=== PATIENT | female | born 1970 | race Caucasian/White ===

== ENCOUNTER → 2016-12-15 | Outpatient (REF) | payer OTHER ==
[~2016-12-15] MED LIST: ACAM0.05 PO; ACET50TA PO; ANUS2.5C2 TOP; DOCU10ELUD PO; ELIQ5TAB PO; MOM30SS PO; PRENTAB9 PO; SERT-138 PO; SERT25TA85 PO; TRAZO50TA PO; ZOLO100T PO
== END ==
LOC: M LAB REF 09:10
PROVIDERS: ATTEND Physician Assistant
DX: Z20.828 Contact with and (suspected) exposure to other viral communicable diseases (principal)

== ENCOUNTER 2017-02-17 18:45 | Emergency (ER) | payer OTHER ==
[~2017-02-17] VITALS: Ht 160 cm; Wt 131.5 kg
[~2017-02-17 18:45] MED LIST changes: +SERT25TA PO; -SERT25TA85 PO
[2017-02-17] MEDS ORDERED: SERT50TA PO (19:00)
[2017-02-17] MEDS ORDERED: WELLTAB38 PO (19:00)
[2017-02-17] MEDS ORDERED: PANT40TA2 PO (19:00)
[2017-02-17 21:13] VITALS: BP 127/80
== END 2017-02-17 21:14 | disposition home or self-care (01) ==
LOC: M ED 20:42
DX: F10.20 Alcohol dependence, uncomplicated (principal); Z86.718 Personal history of other venous thrombosis and embolism; Z79.01 Long term (current) use of anticoagulants

== ENCOUNTER → 2017-04-01 | Outpatient (CLI) | payer MEDICAID ==
[~2017-04-01] MED LIST changes: +PANT40TA2 PO; +SERT50TA PO; +WELLTAB38 PO
== END ==
LOC: M OUTALCOH 12:54
PROVIDERS: ATTEND Psychiatry & Neurology Psychiatry
DX: F10.20 Alcohol dependence, uncomplicated (principal)

== ENCOUNTER 2017-04-12 09:24 | Outpatient (RCR) | payer MEDICAID | END 2017-04-21 | LOC: M OUTALCOH 09:24 | PROVIDERS: ATTEND Psychiatry & Neurology Psychiatry | DX: F10.20 Alcohol dependence, uncomplicated (principal) ==

== ENCOUNTER 2017-05-20 11:00 | Outpatient (RCR) | payer MEDICAID | END 2017-05-21 | LOC: M OUTALCOH 11:00 | PROVIDERS: ATTEND Psychiatry & Neurology Psychiatry | DX: F10.20 Alcohol dependence, uncomplicated (principal) ==

== ENCOUNTER → 2017-08-31 | Outpatient (CLI) | payer OTHER ==
[~2017-08-31] MED LIST changes: +ALLO100T PO; +FOLI1TAB4 PO; +INDO25CA PO; +NAPR500T3 PO; +TRAM50TA2 PO; +VENL75CA47 PO; +VITMTA PO
--- NOTE | 2017-08-31 16:18 | REP ---
RIGHT KNEE, FIVE VIEWS: HISTORY: Strain. There is no acute fracture or dislocation. The joint spaces are normal in appearance. Small osteophytes are present on the tibia and patella. IMPRESSION: Degenerative change as described above. Signed by Jose Gandara MD 08/31/2017 04:21 P
== END ==
LOC: M WUC 09:15
PROVIDERS: ATTEND Physician Assistant
DX: M25.761 Osteophyte, right knee (principal); S86.111S Strain of other muscle(s) and tendon(s) of posterior muscle group at lower leg level, right leg, sequela; X58.XXXA Exposure to other specified factors, initial encounter; Y92.89 Other specified places as the place of occurrence of the external cause; Y93.89 Activity, other specified; Y99.8 Other external cause status

== ENCOUNTER → 2017-09-07 | Outpatient (REF) | payer OTHER | LOC: M LAB REF 17:00 | PROVIDERS: ATTEND Physician Assistant Medical | DX: R30.0 Dysuria (principal) ==

== ENCOUNTER 2017-09-25 12:09 | Inpatient (IN) | payer OTHER ==
[~2017-09-25] VITALS: Ht 162.6 cm; Wt 132.0 kg
[~2017-09-25 12:09] MED LIST changes: -ALLO100T PO; -FOLI1TAB4 PO; -INDO25CA PO; -NAPR500T3 PO; -TRAM50TA2 PO; -VENL75CA47 PO; -VITMTA PO
[2017-09-25] MEDS ORDERED: ALLO100T PO (12:40)
[2017-09-25] MEDS ORDERED: NAPR500T3 PO (12:40)
[2017-09-25] MEDS ORDERED: TRAM50TA2 PO (12:40)
[2017-09-25 13:26] LABS: MEAN CORPUSCULAR HEMOGLOBIN 27.5 pg (27.0-33.0); MEAN CORPUSCULAR HGB CONC 31.7 g/dl (32.0-36.5); MEAN CORPUSCULAR VOLUME 86.5 fl (80.0-96.0); PLATELET COUNT, AUTOMATED 152 10^3/uL (150-450); RED CELL DISTRIBUTION WIDTH 15.9 % (11.5-14.5)
[2017-09-25 13:44] LABS: CONTROL LINE HCG INT CTR LINE PRESENT
[2017-09-25 13:55] LABS: ALBUMIN 3.9 GM/DL (3.2-5.2); ALBUMIN/GLOBULIN RATIO 0.98 (1.00-1.93); ALKALINE PHOSPHATASE 133 U/L (45-117); ALT/SGPT 53 U/L (12-78); ANION GAP 8 MEQ/L (8-16); AST/SGOT 28 U/L (7-37); BILIRUBIN,DIRECT 0.2 MG/DL (0.0-0.2); BILIRUBIN,TOTAL 0.3 MG/DL (0.2-1.0); BLOOD UREA NITROGEN 9 MG/DL (7-18); CALCIUM LEVEL 8.6 MG/DL (8.5-10.1); CARBON DIOXIDE LEVEL 27 MEQ/L (21-32); CHLORIDE LEVEL 108 MEQ/L (98-107); CREATININE FOR GFR 0.79 MG/DL (0.55-1.02); GLOMERULAR FILTRATION RATE > 60.0 (>58); GLUCOSE, FASTING 85 MG/DL (70-105); SODIUM LEVEL 143 MEQ/L (136-145); TOTAL PROTEIN 7.9 GM/DL (6.4-8.2)
[2017-09-25 13:57] LABS: METHADONE URINE NEGATIVE (NEGATIVE)
[2017-09-25] MEDS ORDERED: OXAZEPAM 10 MG CAP PO ONE (14:15)
[2017-09-25] MEDS ORDERED: traMADol 50 MG TAB PO ONE (17:15)
[2017-09-25] MEDS ORDERED: MOM 30ML SUSPENSION UDC PO PRN (18:15)
[2017-09-25] MEDS ORDERED: ACETAMINOPHEN TAB 650MG DOSE (2X325MG) PO PRN (18:15)
[2017-09-25] MEDS ORDERED: MAALOX 30 ML SUSP *UDC PO PRN (18:15)
[2017-09-25] MEDS ORDERED: INDO25CA PO (19:43)
[2017-09-25] MEDS ORDERED: OXAZEPAM 10 MG CAP PO PRN (21:30)
[2017-09-25] MEDS ORDERED: INDOMETHACIN 25 MG CAP PO PRN (21:30)
[2017-09-25] MEDS: THIAMINE 100 MG TAB PO SCH (22:16)
[2017-09-26 07:15] VITALS: BP 146/70
[2017-09-26] MEDS: traMADol 50 MG TAB PO PRN ×3 (07:21→21:39)
[2017-09-26] MEDS: THIAMINE 100 MG TAB PO SCH ×3 (08:55→21:14)
[2017-09-26] MEDS: MULTIVITAMINS/MINERALS THERAP 1 TAB PO SCH ×2 (08:55→10:03)
[2017-09-26] MEDS: FOLIC ACID 1 MG TAB PO SCH ×2 (08:55→10:03)
[2017-09-26] MEDS: ALLOPURINOL 100 MG TAB PO SCH (10:41)
[2017-09-26] MEDS: VENLAFAXINE **XR** 75MG CAPSULE PO SCH (13:58)
[2017-09-26 18:39] VITALS: BP 135/85
[2017-09-26] MEDS: traZODone 50 MG TAB PO PRN (21:37)
[2017-09-27 07:16] VITALS: BP 121/63
[2017-09-27 07:59] LABS: FREE T4 0.9 NG/DL (0.76-1.46)
[2017-09-27] MEDS: FOLIC ACID 1 MG TAB PO SCH (08:26)
[2017-09-27] MEDS: THIAMINE 100 MG TAB PO SCH ×2 (08:26→20:48)
[2017-09-27] MEDS: traMADol 50 MG TAB PO PRN ×3 (08:26→20:48)
[2017-09-27] MEDS: VENLAFAXINE **XR** 75MG CAPSULE PO SCH (08:26)
[2017-09-27] MEDS: ALLOPURINOL 100 MG TAB PO SCH (08:26)
[2017-09-27] MEDS: MULTIVITAMINS/MINERALS THERAP 1 TAB PO SCH (08:26)
[2017-09-27] MEDS ORDERED: INFLUENZA QUADRIVALENT PF VACCINE 0.5ML SYRINGE (90686) IM ONE (09:00)
[2017-09-27 10:48] VITALS: BP 121/63
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
--- NOTE | 2017-09-27 15:07 | HPE ---
DATE OF ADMISSION: 09/25/2017 HISTORY OF PRESENT ILLNESS: Please refer to the psychiatric history and evaluation for further details on this admission. This examination and history is intended for medical issues which may need treatment, followup or consultation on this 47-year-old female. ALLERGIES: PENICILLIN. PRIMARY CARE PROVIDER: Dr. Small. SOCIAL HISTORY: She is . She lives in [place]. She has four children. ETOH - She drinks three large 25 ounce beers a day, plus liquor at least once a month. Illicit drug use: None. IV drug use: None, denies any. PAST MEDICAL HISTORY: Depression. Anxiety. Alcohol abuse. Obesity. Low back pain. Gout. PAST SURGICAL HISTORY: Lumbar discectomy. Cholecystectomy. Gastric bypass in June of 2005. LABORATORY DATA: WBC 6.0, hemoglobin 12.6, hematocrit 39.7, platelets 152. Sodium 143, potassium 4.0, chloride 108, CO2 27, BUN and creatinine 9 and 0.79. TSH 0.167. EtOH 0.258. EK07/31/2016 showed sinus rhythm. Rate of 96. FAMILY HISTORY: Mother is alive with glaucoma. Father alive with hypertension, prostate cancer. Sibling alive with thyroid cancer and alcohol abuse. History of alcoholism in maternal grandfather and paternal grandfather. HOME MEDICATIONS: - allopurinol 100 mg by mouth daily - indomethacin 25 mg by mouth twice a day as needed for pain - tramadol 50 mg by mouth every 4 hours as needed for pain REVIEW OF SYSTEMS: Other than chronic back pain, was essentially negative. PHYSICAL EXAMINATION: 47-year-old obese female in no acute distress. Vital signs: Height 64 inches, weight 137.27 kg. Body mass index: 51.9. Blood pressure 135/85, pulse 86, respirations 16, temperature 98.2. The patient is alert and oriented times three. Pupils equal and reactive to light. Extraocular movements intact. Cornea and sclera clear. Conjunctiva normal. No facial asymmetry. Pharynx, tongue, and gums pink and moist. Tongue is midline. Neck is supple, without lymphadenopathy. No thyromegaly. No goiter. Carotids 2+ without bruit. Chest clear to auscultation, without wheeze or retraction. Heart is regular without murmur or gallop. Abdomen benign. Bowel sounds positive. /Rectal: Not done. Extremities: No cyanosis, clubbing or edema. Peripheral pulses equal and palpable bilaterally. Skin is warm and dry. Gait steady. IMPRESSION AND PLAN: 1. Psychiatric: Plan per psychiatry. 2. Chronic low back pain: Continue Tylenol as needed. 3. History of gout: Clinically stable continue allopurinol. 4. Alcohol abuse: Monitor for withdrawal.
--- NOTE | 2017-09-27 17:53 | MHIPNPDOC ---
[facility] Progress Note Progress Note DATE OF SERVICE: 09/27/17 HISTORY: Per DR. Salamanca note 09/27/17 -Patient is a 47-year-old woman with a history of alcohol abuse and depression. She called the police after her mother removed her car keys due to intoxication. She says she was having suicidal ideations without plan. Patient denies she was suicidal and says she meant "I can't live like this anymore". She says she has argument with her daughter and mother and can't handle it. Patient has chronic back pain as a stressor and has had surgery and acknowledges she has alcohol problems. This has caused her to be unable to work for several weeks. The patient drinks 2-3, 25 ounce beers nightly and has had alcohol problems for 2-3 years. She denies blackouts or having withdrawal. States Dr. Bernabe, her PCP had prescribed Vivitrol. Says Vivitrol helped her cravings, but Campral did not help. Interval history : Says she's "fine". Denies suicidal thoughts. Says her anxiety is low at the moment. Says she's taking one day at a time. Denies AH, VH , paranoia. Says she's a [employer]. Says she has an appointment for [facility] for a R knee and back MRI, date still to be determined. Until then she has time off work. Says she been off work for almost 2 weeks and feels confined to her home in [place]. Denies common or rare side effects of medications. VITAL SIGNS: See below. NEW TEST RESULTS: TSH 0.780, FT 0.9 CURRENT MEDICATIONS: See below. MENTAL STATUS EXAMINATION: Patient is a 47 year old female, who is nad, . Speech: Is spontaneous, normal rate, rhythm, volume Language skills are intact Thought processes including: linear, logical Thought content: Denies SI,HI, AVH, paranoia or other distortions of perception Abstract reasoning, and computation: Good Description of associations: Good Description of abnormal or psychotic thoughts: none Judgment: fair Insight: fair Orientation: A/O x 3 Recent and remote memory: Intact Attention span and concentration: Good Language: Appropriate Fund of knowledge: Average Mood: "good". Affect: dysthymic, constricted, appropriate DIAGNOSES: 1. Unspecified Depressive Disorder 2. Alcohol use disorder ASSESSMENT:Patient appears constricted and mildly dysthymic. She appears to be minimizing her symptoms and requires further work up on the [facility] for assessment of alcohol withdrawal and depression. She denies suicidal ideation at this time. She also denies AH, VH or other distortions of perception. MANAGEMENT PLAN: Continue Venlafaxine XR 75 mg PO daily for anxiety and depression. Continue to monitor for common or rare side effects of medications. Continue to monitor for safety. TIME SPENT: 15 minutes. Vital Signs Vital Signs Date Time Temp Pulse Resp B/P (MAP) Pulse Ox O2 Delivery O2 Flow Rate FiO2 09/27/17 16:40 16 09/27/17 10:48 71 121/63 09/27/17 07:16 99.6 09/25/17 20:07 98 Room Air Laboratory Data 24H Labs Laboratory Tests 2 09/27/17 07:12: Thyroid Stimulating Hormone (TSH) 0.780, Free Thyroxine 0.90 Current Medications Current Medications Acetaminophen (Tylenol Tab) 650 mg Q6HP PRN PO HEADACHE or DISCOMFORT; Start 09/25/17 at 18:15; Stop 10/25/17 at 18:14; Status Cancel Al Hydrox/Mg Hydrox/Simethicone (Mylanta) 30 ml Q4HP PRN PO HEARTBURN/ INDIGESTION; Start 09/25/17 at 18:15; Stop 10/25/17 at 18:14 Allopurinol (Zyloprim) 100 mg DAILY PO Last administered on 09/27/17 08:26; Start 09/26/17 at 09:00; Stop 10/26/17 at 08:59 Folic Acid (Folic Acid) 1 mg DAILY PO Last administered on 09/27/17 08:26; Start 09/26/17 at 09:00; Stop 10/26/17 at 08:59 Home Med (Med Rec Complete!) ASDIRECTED XX ; Start 09/25/17 at 19:45; Stop 09/25/17 at 19:45; Status DC Indomethacin (Indocin) 25 mg BID PRN PO PAIN; Start 09/25/17 at 21:30; Stop at 21:29 Magnesium Hydroxide (Milk Of Magnesia) 30 ml DAILYPRN PRN PO CONSTIPATION; Start 09/25/17 at 18:15; Stop 10/25/17 at 18:14 Multivitamins (Theragram-M) 1 tab DAILY PO Last administered on 09/27/17 08:26 ; Start 09/26/17 at 09:00; Stop 10/26/17 at 08:59 Oxazepam (Serax) 30 mg Q4HP PRN PO WITHDRAWAL SYMPTOMS; Start 09/25/17 at 21:30 ; Stop 10/02/17 at 21:29 Thiamine HCl (Thiamine HCl) 100 mg BID PO Last administered on 09/27/17 08:26 ; Start 09/25/17 at 21:00; Stop 09/28/17 at 09:01 Tramadol HCl (Ultram) 50 mg Q4H PRN PO PAIN Last administered on 09/27/17 15: 42; Start 09/25/17 at 21:30; Stop 10/02/17 at 21:29 Trazodone HCl (Desyrel) 50 mg QHSP PRN PO INSOMNIA Last administered on 21:37; Start 09/25/17 at 18:15; Stop 10/25/17 at 18:14 Venlafaxine HCl (Effexor Xr) 75 mg QAM PO Last administered on 09/27/17 08 :26; Start 09/26/17 at 09:00; Stop 10/26/17 at 08:59 Allergies Coded Allergies: Penicillins (Verified Allergy, Unknown, 07/30/16) Penicillins Cross Reactors (Verified Allergy, Unknown, 07/30/16) DEVIN FRITZ PGY-1 Sep 27, 2017 17:53
[2017-09-27 18:00] VITALS: BP 129/75
[2017-09-27] MEDS: traZODone 50 MG TAB PO PRN (20:48)
[2017-09-28 06:56] VITALS: BP 114/59
[2017-09-28] MEDS: THIAMINE 100 MG TAB PO SCH (08:04)
[2017-09-28] MEDS: MULTIVITAMINS/MINERALS THERAP 1 TAB PO SCH (08:06)
[2017-09-28] MEDS: FOLIC ACID 1 MG TAB PO SCH (08:06)
[2017-09-28] MEDS: traMADol 50 MG TAB PO PRN ×5 (08:06→21:31)
[2017-09-28] MEDS: ALLOPURINOL 100 MG TAB PO SCH (08:06)
[2017-09-28] MEDS: VENLAFAXINE **XR** 75MG CAPSULE PO SCH (08:07)
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
[2017-09-28 18:05] VITALS: BP 127/76
[2017-09-28] MEDS: traZODone 50 MG TAB PO PRN (21:31)
[2017-09-29 06:23] VITALS: BP 110/64
[2017-09-29] MEDS: VENLAFAXINE **XR** 75MG CAPSULE PO SCH (08:39)
[2017-09-29] MEDS: FOLIC ACID 1 MG TAB PO SCH (08:39)
[2017-09-29] MEDS: ALLOPURINOL 100 MG TAB PO SCH (08:39)
[2017-09-29] MEDS: traMADol 50 MG TAB PO PRN ×3 (08:40→21:13)
[2017-09-29] MEDS: MULTIVITAMINS/MINERALS THERAP 1 TAB PO SCH (08:40)
--- NOTE | 2017-09-29 17:19 | MHIPNPDOC ---
[facility] Progress Note Progress Note DATE OF SERVICE: 09/29/17 HISTORY: Per DR. Salamanca note 09/27/17 -Patient is a 47-year-old woman with a history of alcohol abuse and depression. She called the police after her mother removed her car keys due to intoxication. She says she was having suicidal ideations without plan. Patient denies she was suicidal and says she meant "I can't live like this anymore". She says she has argument with her daughter and mother and can't handle it. Patient has chronic back pain as a stressor and has had surgery and acknowledges she has alcohol problems. This has caused her to be unable to work for several weeks. The patient drinks 2-3, 25 ounce beers nightly and has had alcohol problems for 2-3 years. She denies blackouts or having withdrawal. States Dr. Bernabe, her PCP had prescribed Vivitrol. Says Vivitrol helped her cravings, but Campral did not help. Interval history : Says she will make call for prior authorization of MRI for right knee. Says her pain medications help. Says she still has moments where she thinks of drinking, but that she wants treatment for her addiction to alcohol. Mentins "90 meetings for 90 days" for her alcohol addiction. Has been attending some of her groups including, 1 this morning and 1 last night. Denies suicidal ideations, HI, AH, VH, paranoia. Denies common or rare side effects of medications. VITAL SIGNS: See below. NEW TEST RESULTS: see below CURRENT MEDICATIONS: See below. MENTAL STATUS EXAMINATION: Patient is a 47 year old female, who is nad, cooperative, normal eye contact. Speech: Is spontaneous, decreased rate, rhythm, volume Language skills are intact Thought processes including: linear, logical Thought content: Denies SI,HI, AVH, paranoia or other distortions of perception Abstract reasoning, and computation: not assessed Description of associations: not assessed Description of abnormal or psychotic thoughts: none Judgment: fair Insight: improving Orientation: A/O x 3 Recent and remote memory: Intact Attention span and concentration: Good Language: Appropriate Fund of knowledge: Average Mood: "good". Affect: euthymic, constricted, appropriate DIAGNOSES: 1. Unspecified Depressive Disorder 2. Alcohol use disorder ASSESSMENT: Patient is attending more groups and mood is lifted because she is hopeful to get prior authorization for the MRI of her R knee. Her insight is improving after counselling of alcohol addiction and speaking to her family members, who mention it is her last chance to continue living in their home. She says she has been driving out to a drinking spot and returning home. Discussed the dangers to both her health and others regarding this risky behavior. MANAGEMENT PLAN: Continue Venlafaxine XR 75 mg PO daily for anxiety and depression. Continue treatment plan. Continue to monitor for safety. Continue to monitor for medication side effects. Continue to monitor for alcohol withdrawal. TIME SPENT: 20 minutes. Vital Signs Vital Signs Date Time Temp Pulse Resp B/P (MAP) Pulse Ox O2 Delivery O2 Flow Rate FiO2 09/29/17 14:58 18 09/29/17 06:23 98.3 70 110/64 (79) 09/28/17 18:00 Room Air 09/25/17 20:07 98 Current Medications Current Medications Acetaminophen (Tylenol Tab) 650 mg Q6HP PRN PO HEADACHE or DISCOMFORT; Start 09/25/17 at 18:15; Stop 10/25/17 at 18:14; Status Cancel Al Hydrox/Mg Hydrox/Simethicone (Mylanta) 30 ml Q4HP PRN PO HEARTBURN/ INDIGESTION; Start 09/25/17 at 18:15; Stop 10/25/17 at 18:14 Allopurinol (Zyloprim) 100 mg DAILY PO Last administered on 09/29/17 08:39; Start 09/26/17 at 09:00; Stop 10/26/17 at 08:59 Folic Acid (Folic Acid) 1 mg DAILY PO Last administered on 09/29/17 08:39; Start 09/26/17 at 09:00; Stop 10/26/17 at 08:59 Home Med (Med Rec Complete!) ASDIRECTED XX ; Start 09/25/17 at 19:45; Stop 09/25/17 at 19:45; Status DC Indomethacin (Indocin) 25 mg BID PRN PO PAIN; Start 09/25/17 at 21:30; Stop at 21:29 Magnesium Hydroxide (Milk Of Magnesia) 30 ml DAILYPRN PRN PO CONSTIPATION; Start 09/25/17 at 18:15; Stop 10/25/17 at 18:14 Multivitamins (Theragram-M) 1 tab DAILY PO Last administered on 09/28/17 08:06 ; Start 09/26/17 at 09:00; Stop 10/26/17 at 08:59 Oxazepam (Serax) 30 mg Q4HP PRN PO WITHDRAWAL SYMPTOMS Last administered on 13:17; Start 09/25/17 at 21:30; Stop 10/02/17 at 21:29 Thiamine HCl (Thiamine HCl) 100 mg BID PO Last administered on 09/28/17 08:04 ; Start 09/25/17 at 21:00; Stop 09/28/17 at 09:01; Status DC Tramadol HCl (Ultram) 50 mg Q4H PRN PO PAIN Last administered on 09/29/17 14: 25; Start 09/25/17 at 21:30; Stop 10/02/17 at 21:29 Trazodone HCl (Desyrel) 50 mg QHSP PRN PO INSOMNIA Last administered on 21:31; Start 09/25/17 at 18:15; Stop 10/25/17 at 18:14 Venlafaxine HCl (Effexor Xr) 75 mg QAM PO Last administered on 09/29/17 08 :39; Start 09/26/17 at 09:00; Stop 10/26/17 at 08:59 Allergies Coded Allergies: Penicillins (Verified Allergy, Unknown, 07/30/16) Penicillins Cross Reactors (Verified Allergy, Unknown, 07/30/16) DEVIN FRITZ PGY-1 Sep 29, 2017 17:19
[2017-09-29] MEDS ORDERED: FOLI1TAB4 PO (17:31)
[2017-09-29] MEDS ORDERED: VITMTA PO (17:31)
[2017-09-29] MEDS ORDERED: TRAZO50TA PO (17:31)
[2017-09-29] MEDS ORDERED: VENL75CA47 PO (17:31)
[2017-09-29 18:00] VITALS: BP 123/82
[2017-09-29] MEDS: traZODone 50 MG TAB PO PRN (21:13)
[2017-09-30 06:29] VITALS: BP 132/77
[2017-09-30] MEDS: ALLOPURINOL 100 MG TAB PO SCH (08:51)
[2017-09-30] MEDS: FOLIC ACID 1 MG TAB PO SCH (08:51)
[2017-09-30] MEDS: VENLAFAXINE **XR** 75MG CAPSULE PO SCH (08:51)
[2017-09-30] MEDS: traMADol 50 MG TAB PO PRN ×2 (08:52→13:13)
[2017-09-30] MEDS: MULTIVITAMINS/MINERALS THERAP 1 TAB PO SCH (08:52)
--- NOTE | 2017-09-30 23:51 | MHDSPDOC ---
[facility] Discharge Summary Discharge Summary DATE OF ADMISSION: Sep 25, 2017 at 18:11 DATE OF DISCHARGE: Sep 30, 2017 at 17:23 DISCHARGE DIAGNOSES: 1. Unspecified Depressive Disorder 2. Alcohol Use Disorder REASON FOR ADMISSION: Per DR. Salamanca note 09/27/17 -"Patient is a 47-year-old woman with a history of alcohol abuse and depression. She called the police after her mother removed her car keys due to intoxication. She says she was having suicidal ideations without plan. Patient denies she was suicidal and says she meant "I can't live like this anymore". She says she has argument with her daughter and mother and can't handle it. Patient has chronic back pain as a stressor and has had surgery and acknowledges she has alcohol problems. This has caused her to be unable to work for several weeks. The patient drinks 2-3, 25 ounce beers nightly and has had alcohol problems for 2-3 years. She denies blackouts or having withdrawal. States Dr. Bernabe, her PCP had prescribed Vivitrol. Says Vivitrol helped her cravings, but Campral did not help". CONSULTANTS INVOLVED: none TREATMENT AND PROGRESS ON THE UNIT : The patient arrived by police escort to the [facility] Emergency Department (ED) on 09/25/17. She had an alcohol level of 0.258 and in the ED she received Oxazepam 20 mg orally once and Tramadol 100 mg orally once. She was medically cleared, CIWA protocol was continued and she was transferred to the [facility] the same day with unspecified depressive disorder. 09/25/17; in the [facility] she was started on Folic acid 1 mg orally daily for alcohol withdrawal, Multivitamins (thera M plus ) 1 tablet orally daily for vitamin deficiency, Trazodone 50 mg orally before sleep for insomnia, Allopurinol 100 mg orally daily, Indomethacin 25 mg orally twice a day as needed for pain and Tramadol HCL 50 mg orally every 4 hours as needed for pain. She was also on a CIWA monitoring ever 8 hours. 09/26/17 she was started on Venlafaxine HCL ER 75 mg orally in the morning for depression and anxiety and an influenza quadrivalent 0.5 ml intramuscular injection was ordered. Her TSH (0.78) and free T4 (0.9) were also tested. The patient received daily individual and group therapy, vital signs, sleep evaluations, violence check-list, suicidal assessments, counselling for substance abuse and evaluation for pain. A safety plan was put in place prior to discharge. HOSPITAL COURSE: see above DISCHARGE ASSESSMENT: Patient say her mood has improved and she feels more hopeful and "good" overall since she is trying to get pre-authorized for the MRI her knee. Says after speaking to her family she realizes she needs to stop her drinking; was counselled regarding alcohol cessation. She denies suicidal or homicidal ideation. She denies feeling depressed or anxious at this time. Says her medications help her and she denies common or rare side effects from her medications. She denies manic, paranoid or other distortions of perception or thought. She says she is ready to leave the inpatient unit and will attend her follow up appointments. MENTAL STATUS EXAMINATION ON DISCHARGE: Patient is a 47 year old female, who is no acute distress, cooperative, normal eye contact. Speech: spontaneous, decreased rate, rhythm, volume Language skills: intact Thought processes including: linear, logical Thought content: Denies suicidal ideation,homicidal ideation, auditory or visual hallucinations, paranoia or other distortions of perception Description of abnormal or psychotic thoughts: none Judgment: fair Insight: fair Orientation: A/O x 3 Recent and remote memory: Intact Attention span and concentration: Good Language: Appropriate Fund of knowledge: Average Mood: "good". Affect: euthymic, constricted, appropriate MEDICATIONS ON DISCHARGE: New medications - Folic acid 1 mg orally daily for alcohol withdrawal. - Multivitamins (thera M plus) 1 tablet orally daily for vitamin deficiency. - Trazodone 50 mg orally before sleep for insomnia. - Venlafaxine HCL ER 75 mg orally in the morning for depression. Continued Medications -Allopurinol 100 mg orally daily -Indomethacin 25 mg orally twice a day as needed for pain -Tramadol HCL 50 mg orally every 4 hours as needed for pain PLAN/FOLLOWUP ARRANGEMENTS: Follow Up Care Education Label * Care Coordination * Care Coordination/Case Management/Supervision [facility] Follow Up Care Education Label * Mental Health Appt 1 * [facility] * Established With This Provider No NEW PATIENT APPOINTMENT * Therapist ASTRID * Date Oct 01, 2017 * Time 09:00 * Address of Clinic or Practice [address] [place] [address] * Follow Up Care Education Label * Chemical Dependency Appt1 * Chemical Dependency [facility] * Established With This Provider No * Date Oct 04, 2017 * Time 08:00 * Address of Clinic or Practice [address] [place] [address] * Follow Up Care Education Label * Medical * Medical Follow Up [facility] * Established With This Provider No NEW PATIENT APPOINTMENT * Date Oct 11, 2017 * Time 13:30 * Phone Number [phone] * Additional information The amount of time spent in the coordination of care for this patient was approximately 60 minutes. Vital Signs/I&Os Vital Signs Date Time Temp Pulse Resp B/P (MAP) Pulse Ox O2 Delivery O2 Flow Rate FiO2 09/30/17 14:44 16 09/30/17 06:29 98.6 71 132/77 (95) 09/28/17 18:00 Room Air 09/25/17 20:07 98 Medications Scheduled Allopurinol (Allopurinol) 100 Mg Tab, 100 MG PO DAILY, (Reported) Folic Acid (Folic Acid) 1 Mg Tab, 1 MG PO DAILY for alcohol withdrawal, #7 take 1 pill per day. Multivitamins *[facility] STOCKED* (Thera M Plus *[facility] STOCKED*) 1 Tab Tab, 1 TAB PO DAILY for vitamin deficiency, #10 Take 1 tablet per day with water. Venlafaxine HCl (Venlafaxine HCl ER) 75 Mg Capcr, 75 MG PO QAM for DEPRESSION, # 7 Take one tablet in the morning every day at the same time with water. Scheduled PRN Indomethacin (Indomethacin) 25 Mg Cap, 25 MG PO BID PRN for PAIN, (Reported) Tramadol HCl (Tramadol HCl) 50 Mg Tab, 50 MG PO Q4H PRN for PAIN, (Reported) Trazodone HCl (Trazodone HCl) 50 Mg Tab, 50 MG PO QHSP PRN for INSOMNIA, #7 Take one tablet before bed as needed for insomnia. Allergies Coded Allergies: Penicillins (Verified Allergy, Unknown, 07/30/16) Penicillins Cross Reactors (Verified Allergy, Unknown, 07/30/16) GME ATTESTATION GME ATTESTATION My faculty preceptor for this patient encounter was physically present during the encounter and was fully available. All aspects of the patient interview, examination, medical decision making process, and medical care plan development were reviewed and approved by the faculty preceptor. The faculty preceptor is aware and concurs with the plan as stated in the body of this note and will attest to such by his/her cosignature. DEVIN FRITZ PGY-1 Sep 30, 2017 23:51
== END 2017-09-30 17:23 | disposition home or self-care (01) | DRG 754 ==
LOC: M ED 12:09 → M ED INP 18:11 → M PSY 20:13
PROVIDERS: ADMIT Psychiatry & Neurology Psychiatry; ATTEND Psychiatry & Neurology Psychiatry
DX: F32.9 Major depressive disorder, single episode, unspecified (principal); F10.20 Alcohol dependence, uncomplicated; Z81.8 Family history of other mental and behavioral disorders; E66.9 Obesity, unspecified; M54.5 Low back pain; M10.9 Gout, unspecified; Z98.84 Bariatric surgery status; Z81.1 Family history of alcohol abuse and dependence; Z79.899 Other long term (current) drug therapy; Z68.43 Body mass index [BMI] 50.0-59.9, adult; Z88.0 Allergy status to penicillin

== ENCOUNTER → 2017-10-11 | Outpatient (CLI) | payer OTHER ==
[~2017-10-11] MED LIST changes: +ALLO100T PO; +FOLI1TAB4 PO; +INDO25CA PO; +NAPR500T3 PO; +TRAM50TA2 PO; +VENL75CA47 PO; +VITMTA PO
--- NOTE | 2017-10-12 08:48 | REP ---
MRI lumbar spine without contrast: History: Low back pain. Remote prior history of back surgery 20 years ago. No known injury. Comparison MRI study [facility] April 05, 2014. Technique: Sagittal and axial T1 and T2-weighted scans are acquired in the usual fashion with and without fat saturation. Sequences include spin echo, turbo spin-echo, and STIR imaging sequences. MRI findings: Cortical and medullary bone signal intensity are normal. Vertebral body heights are preserved. Alignment is normal. Pedicles and posterior elements are intact. Normal caliber aorta is seen. No extra vertebral abnormality is observed. There are diffuse degenerative disc disease changes and osteoarthritic facet changes. At L1-L2, axial and sagittal images demonstrate mild diffuse disc bulging and right foraminal disc bulging. The nerve root is not compressed. There is no thecal sac compression. At L2-L3, there is moderate diffuse disc bulging. Bilateral foraminal disc bulging is seen right more so than left. The degree of disc bulge is felt to be unchanged from the 2014 prior study. There is mild left-sided neural foraminal narrowing. This is a little more prominent. There is facet hypertrophy and some ligamentum flavum hypertrophy and L2-3 mild in degree. The previously noted synovial cyst is not apparent today. Canal size is borderline. At L3-4, there is a right laminectomy defect as before. There is diffuse disc bulging. A small focal right paracentral disc protrusion is seen indenting the ventral margin of the thecal sac. This is a new finding. This is seen indenting the right ventral lateral margin of the thecal sac subtly. The nerve roots exit the neural foramina without compression. At L4-L5, today's study demonstrates a left paracentral focal disc protrusion which is very slightly larger than on the prior study indenting the ventral margin of the thecal sac to the left of midline. This is adjacent to the exiting left sided nerve root although it does not appear to compress this. No new disc herniation is seen. No central canal stenosis is noted. Mild L3-4 and L4-5 facet hypertrophy is again visible unchanged. At L5-S1, there is mild to moderate bilateral facet hypertrophy. No disc protrusion is seen. No neural foraminal narrowing or central canal stenosis is seen. Impression: Degenerative spondylosis changes as above. New small right paracentral focal disc protrusion at L3-4. Stable left paracentral disc protrusion at L4-5 very slightly larger. Borderline canal size at L2-3. Signed by Prasanna Fink MD 10/12/2017 12:38 P
== END ==
LOC: M RAD 16:58
PROVIDERS: ATTEND Orthopaedic Surgery
DX: M54.5 Low back pain (principal)

== ENCOUNTER 2018-04-07 08:54 | Emergency (ER) | payer OTHER ==
[2018-04-07] MEDS: ONDANSETRON 4MG/2ML VIAL (J2405) IV (10:04)
[2018-04-07] MEDS: NS 1,000 ML IV (10:04)
[2018-04-07] MEDS: KETOROLAC 30 MG/ML VIAL (J1885) IV (10:04)
[2018-04-07 10:10] LABS: BASO % 0.3 % (0.0-1.0); EOS # 0.1 10^3/uL (0.0-0.50); EOS % 0.6 % (0.0-3.0); HEMATOCRIT 36.9 % (36.0-47.0); HEMOGLOBIN 11.8 g/dl (12.0-15.5); IMMATURE GRANULOCYTE % 0.3 % (0-3.0); LYMPH # 1.3 10^3/uL (1.5-4.5); LYMPH % 13.1 % (24.0-44.0); MEAN CORPUSCULAR HEMOGLOBIN 26.7 pg (27.0-33.0); MEAN CORPUSCULAR VOLUME 83.5 fl (80.0-96.0); MONO # 0.8 10^3/uL (0.0-0.8); MONO % 8.1 % (0.0-5.0); NEUTROPHILS # 7.8 10^3/uL (1.8-7.7); NEUTROPHILS % 77.6 % (36.0-66.0); PLATELET COUNT, AUTOMATED 152 10^3/uL (150-450); RED BLOOD COUNT 4.42 10^6/uL (4.00-5.40); RED CELL DISTRIBUTION WIDTH 15.9 % (11.5-14.5)
[2018-04-07 10:19] LABS: KETONE, URINE AUTO RFX NEGATIVE (NEGATIVE); LEUKOCYTE ESTERASE UR AUTO RFX TRACE (NEGATIVE); MUCUS, URINE RFX LARGE (NEGATIVE); NITRITE, URINE AUTO RFX NEGATIVE (NEGATIVE); RBC, URINE AUTO RFX 0 /HPF (0-3); SPECIFIC GRAVITY UR AUTO RFX 1.028 (1.002-1.035); SQUAM EPITHELIAL CELL UR AURFX 5 /HPF (0-6); WBC, URINE AUTO RFX 3 /HPF (0-3)
[2018-04-07 10:34] LABS: ALBUMIN 3.5 GM/DL (3.2-5.2); ALBUMIN/GLOBULIN RATIO 0.88 (1.00-1.93); ALKALINE PHOSPHATASE 114 U/L (45-117); ALT/SGPT 25 U/L (12-78); ANION GAP 8 MEQ/L (8-16); AST/SGOT 30 U/L (7-37); BILIRUBIN,TOTAL 0.5 MG/DL (0.2-1.0); BLOOD UREA NITROGEN 13 MG/DL (7-18); CALCIUM LEVEL 8.5 MG/DL (8.5-10.1); CARBON DIOXIDE LEVEL 23 MEQ/L (21-32); CHLORIDE LEVEL 110 MEQ/L (98-107); CREATININE FOR GFR 0.73 MG/DL (0.55-1.30); GLOMERULAR FILTRATION RATE > 60.0 (>58); GLUCOSE, FASTING 90 MG/DL (70-100); LIPASE 121 U/L (73-393); POTASSIUM SERUM 4.4 MEQ/L (3.5-5.1); SODIUM LEVEL 141 MEQ/L (136-145); TOTAL PROTEIN 7.5 GM/DL (6.4-8.2)
[2018-04-07] MEDS: MORPHINE 4 MG/ML 1ML VIAL/SYRINGE (J2270) IV (11:03)
[2018-04-07] MEDS: METOCLOPRAMIDE INJ 10MG/2ML VIAL (J2765) IV (11:03)
== END 2018-04-07 12:16 | disposition home or self-care (01) ==
LOC: M ED 08:54
DX: R10.12 Left upper quadrant pain (principal); R10.32 Left lower quadrant pain; R10.9 Unspecified abdominal pain; R11.2 Nausea with vomiting, unspecified; Z98.84 Bariatric surgery status; Z86.718 Personal history of other venous thrombosis and embolism; K21.9 Gastro-esophageal reflux disease without esophagitis; M54.9 Dorsalgia, unspecified; F41.9 Anxiety disorder, unspecified; F32.9 Major depressive disorder, single episode, unspecified; Z88.0 Allergy status to penicillin
CPT/HCPCS: J2270

== ENCOUNTER 2018-06-19 20:02 | Emergency (ER) | payer MEDICAID, OTHER ==
[2018-06-19] MEDS ORDERED: NALOXONE INJ 2 MG/2 ML SYRINGE (J2310) As Ordered (20:11)
[2018-06-19 20:21] LABS: BEDSIDE GLUCOSE 158 MG/DL (70-105)
[2018-06-19] MEDS: NALOXONE INJ 2 MG/2 ML SYRINGE (J2310) IV (20:32)
[2018-06-19 21:05] LABS: AMPHETAMINES LEVEL URINE NEGATIVE (NEGATIVE); BARBITURATES URINE NEGATIVE (NEGATIVE); BASO % 0.7 % (0.0-1.0); BENZODIAZEPINES URINE NEGATIVE (NEGATIVE); CANNABINOIDS URINE NEGATIVE (NEGATIVE); COCAINE METABOLITE URINE NEGATIVE (NEGATIVE); EOS # 0.1 10^3/uL (0.0-0.50); EOS % 2.3 % (0.0-3.0); HEMOGLOBIN 9.9 g/dl (12.0-15.5); IMMATURE GRANULOCYTE % 0.3 % (0-3.0); LYMPH # 2.5 10^3/uL (1.5-4.5); LYMPH % 41.5 % (24.0-44.0); MEAN CORPUSCULAR HEMOGLOBIN 25.5 pg (27.0-33.0); MEAN CORPUSCULAR VOLUME 85.1 fl (80.0-96.0); METHADONE URINE NEGATIVE (NEGATIVE); MONO # 0.4 10^3/uL (0.0-0.8); MONO % 7.2 % (0.0-5.0); NEUTROPHILS # 2.9 10^3/uL (1.8-7.7); OPIATES URINE NEGATIVE (NEGATIVE); PHENCYCLIDINE URINE NEGATIVE (NEGATIVE); PLATELET COUNT, AUTOMATED 161 10^3/uL (150-450); RED BLOOD COUNT 3.88 10^6/uL (4.00-5.40); WHITE BLOOD COUNT 6.1 10^3/uL (4.0-10.0)
[2018-06-19] MEDS: MULTIVITAMIN -ADULT INJECTION 10 ML, THIAMINE INJection 100 MG, FOLIC ACID 1 MG in NS 1... IV (21:11)
[2018-06-19 21:13] LABS: ACETAMINOPHEN LEVEL < 2.0 UG/ML (10.0-30.0); ALBUMIN/GLOBULIN RATIO 0.88 (1.00-1.93); ALKALINE PHOSPHATASE 94 U/L (45-117); ALT/SGPT 20 U/L (12-78); ANION GAP 10 MEQ/L (8-16); AST/SGOT 19 U/L (7-37); BILIRUBIN,DIRECT < 0.1 MG/DL (0.0-0.2); BILIRUBIN,TOTAL 0.2 MG/DL (0.2-1.0); BLOOD UREA NITROGEN 9 MG/DL (7-18); CALCIUM LEVEL 7.5 MG/DL (8.5-10.1); CARBON DIOXIDE LEVEL 25 MEQ/L (21-32); CHLORIDE LEVEL 109 MEQ/L (98-107); CPK CREATINE PHOSPHOKINASE 249 U/L (26-192); CREATININE FOR GFR 0.82 MG/DL (0.55-1.30); ETHYL ALCOHOL (ETHANOL) 0.244 % (0.000-0.010); GLOMERULAR FILTRATION RATE > 60.0 (>58); GLUCOSE, FASTING 128 MG/DL (70-100); POTASSIUM SERUM 4.2 MEQ/L (3.5-5.1); SALICYLATE LEVEL < 1.7 MG/DL (5.0-30.0); SODIUM LEVEL 144 MEQ/L (136-145); THYROID STIMULATING HORMONE 0.632 uIU/ML (0.358-3.740); TOTAL PROTEIN 6.4 GM/DL (6.4-8.2)
== END 2018-06-20 05:53 | disposition home or self-care (01) ==
LOC: M ED 20:02
DX: F10.929 Alcohol use, unspecified with intoxication, unspecified (principal); R94.31 Abnormal electrocardiogram [ECG] [EKG]; Z88.0 Allergy status to penicillin
CPT/HCPCS: J2310

== ENCOUNTER → 2018-08-10 | Outpatient (CLI) | payer MEDICAID | LOC: M OUTALCOH 08:23 | DX: Z13.89 Encounter for screening for other disorder (principal); F10.20 Alcohol dependence, uncomplicated ==

== ENCOUNTER 2018-08-19 13:42 | Outpatient (RCR) | payer MEDICAID | END 2018-08-21 | LOC: M OUTALCOH 13:42 | DX: F10.20 Alcohol dependence, uncomplicated (principal) ==

== ENCOUNTER 2018-08-30 11:34 | Outpatient (RCR) | payer MEDICAID | END 2018-09-21 | LOC: M OUTALCOH 09-01 13:30 | DX: F10.20 Alcohol dependence, uncomplicated (principal) ==

== ENCOUNTER 2018-09-23 08:26 | Outpatient (RCR) | payer MEDICAID | END 2018-10-21 | LOC: M OUTALCOH 08:26 | DX: F10.20 Alcohol dependence, uncomplicated (principal) ==

== ENCOUNTER 2018-11-18 12:49 | Outpatient (RCR) | payer MEDICAID ==
[~2018-11-18 12:49] MED LIST changes: +BENT10CA PO; +FOLI1TAB11 PO; -FOLI1TAB4 PO; +NAPR-885 PO; -NAPR500T3 PO; -PANT40TA2 PO; +PANT40TA3 PO; +REGL10TA6 PO
== END 2018-11-21 ==
LOC: M OUTALCOH 12:49
PROVIDERS: ATTEND Psychiatry & Neurology Psychiatry
DX: F10.20 Alcohol dependence, uncomplicated (principal)

== ENCOUNTER 2018-12-09 13:00 | Outpatient (RCR) | payer MEDICAID | END 2018-12-22 | LOC: M OUTALCOH 13:00 | PROVIDERS: ATTEND Psychiatry & Neurology Psychiatry | DX: F10.20 Alcohol dependence, uncomplicated (principal) ==

== ENCOUNTER 2019-01-06 09:21 | Outpatient (RCR) | payer MEDICAID | END 2019-01-19 | LOC: M OUTALCOH 09:21 | PROVIDERS: ATTEND Psychiatry & Neurology Psychiatry | DX: F10.20 Alcohol dependence, uncomplicated (principal) ==

== ENCOUNTER 2019-02-13 13:25 | Outpatient (RCR) | payer MEDICAID | END 2019-02-19 | LOC: M OUTALCOH 13:25 | PROVIDERS: ATTEND Psychiatry & Neurology Psychiatry | DX: F10.20 Alcohol dependence, uncomplicated (principal) ==

== ENCOUNTER 2019-03-20 14:00 | Outpatient (RCR) | payer MEDICAID ==
[~2019-03-20 14:00] MED LIST changes: -ACET50TA PO; -DOCU10ELUD PO; +DOCU5LIQ PO; +MAPA500T17 PO; +SERT-141 PO; -SERT25TA PO; +SERT25TA85 PO; -SERT50TA PO
== END 2019-03-21 ==
LOC: M OUTALCOH 14:00
PROVIDERS: ATTEND Psychiatry & Neurology Psychiatry
DX: F10.20 Alcohol dependence, uncomplicated (principal)

== ENCOUNTER 2019-04-06 08:00 | Outpatient (RCR) | payer MEDICAID | END 2019-04-21 | LOC: M OUTALCOH 08:00 | PROVIDERS: ATTEND Psychiatry & Neurology Psychiatry | DX: F10.20 Alcohol dependence, uncomplicated (principal) ==

== ENCOUNTER 2019-05-09 09:13 | Outpatient (RCR) | payer MEDICAID ==
[~2019-05-09 09:13] MED LIST changes: +TRAZ1TAB10 PO; -TRAZO50TA PO
== END 2019-05-21 | disposition home or self-care (01) ==
LOC: M OUTALCOH 09:13
PROVIDERS: ATTEND Psychiatry & Neurology Psychiatry
DX: F10.20 Alcohol dependence, uncomplicated (principal)

== ENCOUNTER 2019-06-13 09:51 | Outpatient (RCR) | payer MEDICAID | END 2019-06-21 | LOC: M OUTALCOH 09:51 | PROVIDERS: ATTEND Psychiatry & Neurology Psychiatry | DX: F10.20 Alcohol dependence, uncomplicated (principal) ==

== ENCOUNTER → 2019-06-22 | Outpatient (REF) ==
--- NOTE | 2019-06-22 11:27 | REP ---
Right knee five views: Comparison is 08/31/2017. There is medial compartment osteoarthritis. This has progressed. The lateral patellofemoral compartments are unremarkable and unchanged. There is a small joint effusion. There are no calcifications or foreign bodies. No fracture. Impression: Medial compartment osteoarthritis that has progressed. Small joint effusion. Electronically Signed by Alvaro Hernandez MD 06/22/2019 11:19 A
--- NOTE | 2019-06-22 11:31 | REP ---
Lumbar spine three views: There are no comparisons. There is scoliosis convex right. There are right upper quadrant abdominal surgical clips. There is advanced degenerative disc disease at L2-3. There is mild degenerative disc disease throughout the remainder of the lumbar spine. There is no spondylolysis or spondylolisthesis. Mineralization is normal. The pedicles and sacroiliac articulations are unremarkable. 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 Impression: Scoliosis. L2-3 advanced degenerative disc disease. Pseudoarthrosis with the sacrum of the enlarged L5 right transverse process. Electronically Signed by Alvaro Hernandez MD 06/22/2019 11:21 A
== END ==
LOC: M SMT 10:41
PROVIDERS: ATTEND Internal Medicine
DX: Z00.00 Encounter for general adult medical examination without abnormal findings (principal)

== ENCOUNTER 2019-07-18 12:45 | Outpatient (RCR) | payer MEDICAID ==
[~2019-07-18 12:45] MED LIST changes: +INDO-16 PO; -INDO25CA PO
== END 2019-07-22 ==
LOC: M OUTALCOH 12:45
PROVIDERS: ATTEND Psychiatry & Neurology Psychiatry
DX: F10.20 Alcohol dependence, uncomplicated (principal)

== ENCOUNTER 2019-08-22 15:22 | Outpatient (RCR) | payer MEDICAID | END 2019-09-21 | LOC: M OUTALCOH 15:22 | PROVIDERS: ATTEND Psychiatry & Neurology Psychiatry | DX: F10.20 Alcohol dependence, uncomplicated (principal) ==

== ENCOUNTER 2019-10-05 08:07 | Outpatient (RCR) | payer MEDICAID | END 2019-10-21 | LOC: M OUTALCOH 08:07 | PROVIDERS: ATTEND Psychiatry & Neurology Psychiatry | DX: F10.20 Alcohol dependence, uncomplicated (principal) ==

== ENCOUNTER → 2020-03-11 | Outpatient (CLI) | payer MEDICAID | LOC: M OUTALCOH 07:59 | PROVIDERS: ATTEND Psychiatry & Neurology Addiction Medicine | DX: F10.20 Alcohol dependence, uncomplicated (principal) ==

== ENCOUNTER → 2020-04-08 | Outpatient (CLI) | payer MEDICAID | LOC: M OUTALCOH 08:29 | PROVIDERS: ATTEND Psychiatry & Neurology Addiction Medicine | DX: Z13.9 Encounter for screening, unspecified (principal); F10.20 Alcohol dependence, uncomplicated ==

== ENCOUNTER 2020-04-16 13:39 | Outpatient (RCR) | payer MEDICAID | END 2020-04-21 | LOC: M OUTALCOH 13:39 | PROVIDERS: ATTEND Psychiatry & Neurology Addiction Medicine | DX: F10.20 Alcohol dependence, uncomplicated (principal) ==

== ENCOUNTER → 2020-06-21 | Outpatient (RCR) | payer MEDICAID ==
[~2020-06-21] MED LIST changes: +PANT40TA29 PO; -PANT40TA3 PO
== END ==
LOC: M OUTALCOH 05-22 15:12
PROVIDERS: ATTEND Psychiatry & Neurology Addiction Medicine
DX: F10.20 Alcohol dependence, uncomplicated (principal)

== ENCOUNTER 2020-07-17 15:00 | Outpatient (RCR) | payer MEDICAID | END 2020-07-22 | LOC: M OUTALCOH 15:00 | PROVIDERS: ATTEND Psychiatry & Neurology Addiction Medicine | DX: F10.20 Alcohol dependence, uncomplicated (principal) ==

== ENCOUNTER → 2020-08-21 | Outpatient (RCR) | payer MEDICAID | LOC: M OUTALCOH 07-23 11:42 | PROVIDERS: ATTEND Psychiatry & Neurology Addiction Medicine | DX: F10.20 Alcohol dependence, uncomplicated (principal) ==

== ENCOUNTER 2020-09-20 15:00 | Outpatient (RCR) | payer MEDICAID | END 2020-09-21 | LOC: M OUTALCOH 15:00 | PROVIDERS: ATTEND Psychiatry & Neurology Addiction Medicine | DX: F10.20 Alcohol dependence, uncomplicated (principal) ==

== ENCOUNTER → 2020-10-21 | Outpatient (RCR) | payer MEDICAID | LOC: M OUTALCOH 09-23 13:13 | PROVIDERS: ATTEND Psychiatry & Neurology Addiction Medicine | DX: F10.20 Alcohol dependence, uncomplicated (principal) ==

== ENCOUNTER → 2020-11-21 | Outpatient (RCR) | payer MEDICAID | LOC: M OUTALCOH 10-25 14:32 | PROVIDERS: ATTEND Psychiatry & Neurology Addiction Medicine | DX: F10.20 Alcohol dependence, uncomplicated (principal) ==

== ENCOUNTER 2020-12-10 08:33 | Outpatient (RCR) | END 2020-12-22 | LOC: EDSTATUS 01-13 08:36 | PROVIDERS: ATTEND Family Medicine | DX: Z20.818 Contact with and (suspected) exposure to other bacterial communicable diseases (principal) ==

== ENCOUNTER 2020-12-20 14:31 | Outpatient (RCR) | payer MEDICAID | END 2020-12-22 | LOC: M OUTALCOH 14:31 | PROVIDERS: ATTEND Psychiatry & Neurology Addiction Medicine | DX: F10.20 Alcohol dependence, uncomplicated (principal) ==

== ENCOUNTER 2021-01-17 08:00 | Outpatient (RCR) | payer MEDICAID | END 2021-01-19 | LOC: M OUTALCOH 08:00 | PROVIDERS: ATTEND Psychiatry & Neurology Psychiatry | DX: F10.20 Alcohol dependence, uncomplicated (principal) ==

== ENCOUNTER 2021-02-18 10:00 | Outpatient (RCR) | payer MEDICAID | END 2021-02-19 | LOC: M OUTALCOH 10:00 | PROVIDERS: ATTEND Psychiatry & Neurology Psychiatry | DX: F10.20 Alcohol dependence, uncomplicated (principal) ==

== ENCOUNTER 2021-03-18 11:00 | Outpatient (RCR) | payer MEDICAID | END 2021-03-21 | LOC: M OUTALCOH 11:00 | PROVIDERS: ATTEND Psychiatry & Neurology Psychiatry | DX: F10.20 Alcohol dependence, uncomplicated (principal) ==

== ENCOUNTER 2021-04-15 09:00 | Outpatient (RCR) | payer MEDICAID | END 2021-04-21 | LOC: M OUTALCOH 09:00 | PROVIDERS: ATTEND Psychiatry & Neurology Psychiatry | DX: F10.20 Alcohol dependence, uncomplicated (principal) ==

== ENCOUNTER 2021-05-19 15:20 | Outpatient (RCR) | payer MEDICAID | END 2021-05-21 | LOC: M OUTALCOH 15:20 | PROVIDERS: ATTEND Psychiatry & Neurology Psychiatry | DX: F10.20 Alcohol dependence, uncomplicated (principal) ==

== ENCOUNTER 2021-06-16 14:01 | Outpatient (RCR) | payer MEDICAID | END 2021-06-21 | LOC: M OUTALCOH 14:01 | PROVIDERS: ATTEND Psychiatry & Neurology Psychiatry | DX: F10.20 Alcohol dependence, uncomplicated (principal) ==

== ENCOUNTER 2021-06-24 13:00 | Outpatient (RCR) | payer MEDICAID | END 2021-07-22 | LOC: M OUTALCOH 13:00 | PROVIDERS: ATTEND Psychiatry & Neurology Psychiatry | DX: F10.20 Alcohol dependence, uncomplicated (principal) ==

== ENCOUNTER → 2021-07-09 | Outpatient (REF) | LOC: M LABSMTC 10:13 | PROVIDERS: ATTEND Pediatrics | DX: Z11.52 Encounter for screening for COVID-19 (principal) ==

== ENCOUNTER → 2021-07-25 | Outpatient (REF) | payer MEDICAID ==
[2021-07-25 19:56] LABS: APPEARANCE, URINE MANUAL CLOUDY (CLEAR); COLOR, URINE MANUAL ORANGE (YELLOW)
[2021-07-25 19:58] LABS: BILIRUBIN, URINE MANUAL OBSCURED (NEGATIVE); BLOOD URINE MANUAL POSITIVE (NEGATIVE); GLUCOSE, URINE (UA) MANUAL NEGATIVE (NEGATIVE); KETONE, URINE MANUAL OBSCURED mg/dL (NEGATIVE); LEUKOCYTE ESTERASE, URINE MAN POSITIVE (NEGATIVE); NITRITE, URINE MANUAL OBSCURED (NEGATIVE); PROTEIN, URINE MANUAL OBSCURED mg/dL (NEGATIVE); UROBILINOGEN, URINE MANUAL OBSCURED mg/dl (NORMAL)
[2021-07-25 20:08] LABS: BACTERIA, URINE NONE SEEN; HYALINE CAST, URINE NONE SEEN /lpf (0-1); MUCUS, URINE SMALL AMOUNT (NEGATIVE); RBC, URINE TNTC /hpf (0-3); WBC, URINE TNTC /hpf (0-3)
[2021-07-25 20:09] LABS: SQUAMOUS EPITHELIAL CELL URINE SMALL AMOUNT /hpf (SMALL AMT)
== END ==
LOC: M LAB REF 16:17
PROVIDERS: ATTEND Physician Assistant Medical
DX: R30.0 Dysuria (principal)

== ENCOUNTER 2021-08-19 15:24 | Outpatient (RCR) | payer MEDICAID | END 2021-08-21 | LOC: M OUTALCOH 15:24 | PROVIDERS: ATTEND Psychiatry & Neurology Psychiatry | DX: F10.20 Alcohol dependence, uncomplicated (principal) ==

== ENCOUNTER 2021-09-17 13:00 | Outpatient (RCR) | payer MEDICAID | END 2021-09-21 | LOC: M OUTALCOH 13:00 | PROVIDERS: ATTEND Psychiatry & Neurology Psychiatry | DX: F10.20 Alcohol dependence, uncomplicated (principal) ==

== ENCOUNTER → 2021-09-26 | Outpatient (REF) | LOC: M LABSMTC 11:59 | PROVIDERS: ATTEND Pediatrics | DX: Z11.52 Encounter for screening for COVID-19 (principal) ==

== ENCOUNTER 2021-10-02 11:00 | Outpatient (RCR) | payer MEDICAID | END 2021-10-21 | LOC: M OUTALCOH 11:00 | PROVIDERS: ATTEND Psychiatry & Neurology Psychiatry | DX: F10.20 Alcohol dependence, uncomplicated (principal) ==

== ENCOUNTER → 2021-12-18 | Outpatient (CLI) | payer OTHER | LOC: M PLAIMG 13:24 | PROVIDERS: ATTEND Physician Assistant | DX: S80.01XA Contusion of right knee, initial encounter (principal); W18.30XA Fall on same level, unspecified, initial encounter; Y92.009 Unspecified place in unspecified non-institutional (private) residence as the place of occurrence of the external cause ==

== ENCOUNTER 2022-01-02 13:10 | Outpatient (RCR) | payer OTHER | END 2022-01-19 | LOC: M OUTALCOH 13:10 | PROVIDERS: ATTEND Psychiatry & Neurology Psychiatry | DX: F10.20 Alcohol dependence, uncomplicated (principal) ==

== ENCOUNTER 2022-01-18 13:21 | Emergency (ER) | payer OTHER ==
[~2022-01-18] VITALS: Ht 162.6 cm; Wt 136.4 kg
[2022-01-18] MEDS ORDERED: LORazepam 2 MG TAB PO PRN (13:30)
[2022-01-18] MEDS ORDERED: NS 1,000 ML IV ONE (13:40)
[2022-01-18 13:58] LABS: HEMATOCRIT 39.7 % (36.0-47.0); HEMOGLOBIN 13.3 g/dl (12.0-15.5); MEAN CORPUSCULAR HEMOGLOBIN 28.7 pg (27.0-33.0); MEAN CORPUSCULAR HGB CONC 33.5 g/dl (32.0-36.5); MEAN CORPUSCULAR VOLUME 85.7 fl (80.0-96.0); PLATELET COUNT, AUTOMATED 193 10^3/uL (150-450); RED BLOOD COUNT 4.63 10^6/uL (4.00-5.40)
[2022-01-18 14:38] LABS: RSV AMPLIFICATION NEGATIVE (NEGATIVE)
[2022-01-18 14:46] LABS: ACETAMINOPHEN LEVEL < 2.0 UG/ML (10.0-30.0); ALBUMIN 3.6 GM/DL (3.2-5.2); ALT/SGPT 31 U/L (12-78); BILIRUBIN,DIRECT 0.1 MG/DL (0.0-0.2); BILIRUBIN,TOTAL 0.3 MG/DL (0.2-1.0); BLOOD UREA NITROGEN 7 MG/DL (7-18); CALCIUM LEVEL 8.3 MG/DL (8.5-10.1); CARBON DIOXIDE LEVEL 24 MEQ/L (21-32); CHLORIDE LEVEL 96 MEQ/L (98-107); CREATININE FOR GFR 0.71 MG/DL (0.55-1.30); ETHYL ALCOHOL (ETHANOL) 0.374 % (0.000-0.010); GLOMERULAR FILTRATION RATE > 60.0 (>51); GLUCOSE, FASTING 92 MG/DL (70-100); POTASSIUM SERUM 4.6 MEQ/L (3.5-5.1); SALICYLATE LEVEL < 1.7 MG/DL (5.0-30.0); SODIUM LEVEL 132 MEQ/L (136-145); THYROID STIMULATING HORMONE 0.362 uIU/ML (0.358-3.740); TOTAL PROTEIN 7.2 GM/DL (6.4-8.2)
[2022-01-18 15:31] LABS: AMPHETAMINES LEVEL URINE NEGATIVE (NEGATIVE); BARBITURATES URINE NEGATIVE (NEGATIVE); BENZODIAZEPINES URINE NEGATIVE (NEGATIVE); CANNABINOIDS URINE NEGATIVE (NEGATIVE); COCAINE METABOLITE URINE NEGATIVE (NEGATIVE); METHADONE URINE NEGATIVE (NEGATIVE); OPIATES URINE NEGATIVE (NEGATIVE); PHENCYCLIDINE URINE NEGATIVE (NEGATIVE)
[2022-01-18 19:37] VITALS: BP 163/81
[2022-01-18] MEDS ORDERED: THIAMINE 100 MG TAB PO SCH (21:00)
[2022-01-19] MEDS ORDERED: MULTIVITAMINS/MINERALS THERAP 1 TAB PO SCH (09:00)
[2022-01-19] MEDS ORDERED: FOLIC ACID 1 MG TAB PO SCH (09:00)
== END 2022-01-18 23:17 | disposition home or self-care (01) ==
LOC: EDBD 13:21 → M ED 13:21
DX: F10.120 Alcohol abuse with intoxication, uncomplicated (principal); F32.A Depression, unspecified; Z88.0 Allergy status to penicillin

== ENCOUNTER 2022-02-18 09:31 | Outpatient (RCR) | payer MEDICAID | END 2022-02-19 | LOC: M OUTALCOH 09:31 | PROVIDERS: ATTEND Psychiatry & Neurology Psychiatry | DX: F10.20 Alcohol dependence, uncomplicated (principal) ==

== ENCOUNTER → 2022-05-21 | Outpatient (CLI) | payer MEDICAID | LOC: M OUTALCOH 09:01 | PROVIDERS: ATTEND Psychiatry & Neurology Psychiatry | DX: F10.10 Alcohol abuse, uncomplicated (principal) ==

== ENCOUNTER 2022-06-11 15:32 | Outpatient (RCR) | payer MEDICAID ==
[2022-06-17] MEDS ORDERED: NALT50TA4 PO (08:24)
[2022-06-17] MEDS ORDERED: ARIP1TAB6 PO (08:24)
[2022-06-17] MEDS ORDERED: PANT40TA29 PO (08:24)
[2022-06-17] MEDS ORDERED: CELE1CAP9 PO (08:24)
[2022-06-17] MEDS ORDERED: DISU1TAB6 (08:24)
[2022-06-17] MEDS ORDERED: BUPR300T92 PO (08:24)
[2022-06-17] MEDS ORDERED: ZOLO100T PO (08:24)
[2022-06-17] MEDS ORDERED: GABA-1171 PO (08:24)
[2022-06-17] MEDS ORDERED: GABA800T4 PO (08:24)
== END 2022-06-21 ==
LOC: M OUTALCOH 15:32
PROVIDERS: ATTEND Psychiatry & Neurology Psychiatry
DX: F10.10 Alcohol abuse, uncomplicated (principal)

== ENCOUNTER 2022-06-16 22:42 | Inpatient (IN) | payer MEDICAID ==
[~2022-06-16] VITALS: Ht 162.6 cm; Wt 136.4 kg
[2022-06-16 23:16] LABS: HEMATOCRIT 40.5 % (36.0-47.0); HEMOGLOBIN 13.3 g/dl (12.0-15.5); MEAN CORPUSCULAR HEMOGLOBIN 28.7 pg (27.0-33.0); MEAN CORPUSCULAR HGB CONC 32.8 g/dl (32.0-36.5); MEAN CORPUSCULAR VOLUME 87.5 fl (80.0-96.0); PLATELET COUNT, AUTOMATED 212 10^3/uL (150-450); RED BLOOD COUNT 4.63 10^6/uL (4.00-5.40); WHITE BLOOD COUNT 6.4 10^3/uL (4.0-10.0)
[2022-06-16 23:51] LABS: ACETAMINOPHEN LEVEL < 2.0 UG/ML (10.0-30.0); ALBUMIN 3.7 GM/DL (3.2-5.2); ALT/SGPT 41 U/L (12-78); AMPHETAMINES LEVEL URINE NEGATIVE (NEGATIVE); BARBITURATES URINE NEGATIVE (NEGATIVE); BENZODIAZEPINES URINE NEGATIVE (NEGATIVE); BILIRUBIN,DIRECT < 0.1 MG/DL (0.0-0.2); BILIRUBIN,TOTAL 0.3 MG/DL (0.2-1.0); BLOOD UREA NITROGEN 12 MG/DL (7-18); CALCIUM LEVEL 8.5 MG/DL (8.5-10.1); CANNABINOIDS URINE NEGATIVE (NEGATIVE); CARBON DIOXIDE LEVEL 20 MEQ/L (21-32); CHLORIDE LEVEL 112 MEQ/L (98-107); COCAINE METABOLITE URINE NEGATIVE (NEGATIVE); CREATININE FOR GFR 0.73 MG/DL (0.55-1.30); GLOMERULAR FILTRATION RATE > 60.0 (>51); GLUCOSE, FASTING 116 MG/DL (70-100); METHADONE URINE NEGATIVE (NEGATIVE); OPIATES URINE NEGATIVE (NEGATIVE); PHENCYCLIDINE URINE NEGATIVE (NEGATIVE); POTASSIUM SERUM 4.4 MEQ/L (3.5-5.1); SALICYLATE LEVEL < 1.7 MG/DL (5.0-30.0); SODIUM LEVEL 143 MEQ/L (136-145); THYROID STIMULATING HORMONE 0.682 uIU/ML (0.358-3.740); TOTAL PROTEIN 7.6 GM/DL (6.4-8.2)
[2022-06-16 23:59] LABS: RSV AMPLIFICATION NEGATIVE (NEGATIVE)
[2022-06-17] MEDS ORDERED: LORazepam 2 MG TAB PO PRN ×2 (02:15→13:20)
[2022-06-17] MEDS: THIAMINE 100 MG TAB PO SCH ×2 (08:18→21:00)
[2022-06-17] MEDS ORDERED: BUPR300T92 PO (08:24)
[2022-06-17] MEDS ORDERED: GABA-1171 PO (08:24)
[2022-06-17] MEDS ORDERED: DISU1TAB6 (08:24)
[2022-06-17] MEDS ORDERED: ZOLO100T PO (08:24)
[2022-06-17] MEDS ORDERED: NALT50TA4 PO (08:24)
[2022-06-17] MEDS ORDERED: GABA800T4 PO (08:24)
[2022-06-17] MEDS ORDERED: CELE1CAP9 PO (08:24)
[2022-06-17] MEDS ORDERED: ARIP1TAB6 PO (08:24)
[2022-06-17] MEDS ORDERED: PANT40TA29 PO (08:24)
[2022-06-17] MEDS ORDERED: MULTIVITAMINS/MINERALS THERAP 1 TAB PO SCH (09:00)
[2022-06-17] MEDS ORDERED: THIAMINE 100 MG TAB PO SCH ×2 (09:00→21:00)
[2022-06-17] MEDS ORDERED: FOLIC ACID 1MG TAB PO SCH (09:00)
[2022-06-17] MEDS ORDERED: NALTREXONE 50 MG TAB PO SCH (12:40)
[2022-06-17] MEDS ORDERED: PANTOPRAZOLE 40MG TAB (PROTONIX) PO SCH (12:40)
[2022-06-17] MEDS ORDERED: buPROPion **XL** TABLET 150MG (WELLBUTRIN XL) PO SCH (12:40)
[2022-06-17] MEDS: GABAPENTIN 300 MG CAP PO SCH ×3 (12:53→21:52)
[2022-06-17] MEDS ORDERED: CelecoXIB (CeleBREX) 100 MG CAP PO SCH (12:55)
[2022-06-17] MEDS ORDERED: traZODone 50 MG TAB PO PRN (13:20)
[2022-06-17] MEDS ORDERED: MAALOX 30 ML SUSP *UDC PO PRN (13:20)
[2022-06-17] MEDS ORDERED: MOM 30ML SUSPENSION UDC PO PRN (13:20)
[2022-06-17] MEDS ORDERED: diphenhydrAMINE 25MG CAP PO PRN (13:20)
[2022-06-17] MEDS ORDERED: IBUPROFEN 400MG TAB PO PRN (13:20)
[2022-06-17] MEDS ORDERED: HOME MED LIST COMPLETE! XX SCH (15:15)
[2022-06-17 23:15] VITALS: BP 142/86
[2022-06-18] MEDS ORDERED: MULTIVITAMINS/MINERALS THERAP 1 TAB PO SCH (09:00)
[2022-06-18] MEDS ORDERED: SERTRALINE 100 MG TAB PO SCH (09:00)
[2022-06-18] MEDS ORDERED: NICOTINE 21MG/24HR 1 EA TRANSDERMAL TD SCH (09:00)
[2022-06-18] MEDS ORDERED: FOLIC ACID 1MG TAB PO SCH (09:00)
== END 2022-06-17 23:22 | DRG 754 ==
LOC: M ED 22:42 → M ED INP 06-17 13:17
PROVIDERS: ADMIT Psychiatry & Neurology Psychiatry; ATTEND Psychiatry & Neurology Psychiatry
DX: F32.A Depression, unspecified (principal); R45.851 Suicidal ideations; Z88.0 Allergy status to penicillin

== ENCOUNTER → 2022-07-22 | Outpatient (CLI) | payer MEDICAID ==
[~2022-07-22] MED LIST changes: +ARIP1TAB6 PO; +BUPR300T92 PO; +CELE1CAP9 PO; +DISU1TAB6; +GABA-1171 PO; +GABA800T4 PO; +NALT50TA4 PO
== END ==
LOC: M LAB 17:38
PROVIDERS: ATTEND Psychiatry & Neurology Psychiatry
DX: F10.20 Alcohol dependence, uncomplicated (principal)

== ENCOUNTER → 2022-07-22 | Outpatient (RCR) | payer MEDICAID | LOC: M OUTALCOH 16:00 | PROVIDERS: ATTEND Psychiatry & Neurology Psychiatry | DX: F10.20 Alcohol dependence, uncomplicated (principal) ==

== ENCOUNTER → 2022-08-21 | Outpatient (RCR) | payer MEDICAID | LOC: M OUTALCOH 07-24 15:30 | PROVIDERS: ATTEND Psychiatry & Neurology Psychiatry | DX: F10.20 Alcohol dependence, uncomplicated (principal) ==

== ENCOUNTER 2022-08-28 22:12 | Inpatient (IN) | payer MEDICAID ==
[~2022-08-28] VITALS: Ht 162.6 cm; Wt 138.3 kg
[2022-08-28] MEDS ORDERED: CHARCOAL ACTIVATED LIQUID 25 GM/120 ML BTL PO ONE (22:20)
[2022-08-28 22:49] LABS: BASO % 0.3 % (0.0-1.0); EOS # 0.1 10^3/uL (0.0-0.5); EOS % 0.9 % (0.0-3.0); HEMATOCRIT 38.4 % (36.0-47.0); HEMOGLOBIN 12.3 g/dl (12.0-15.5); LYMPH # 1.8 10^3/uL (1.5-5.0); LYMPH % 23.4 % (24.0-44.0); MEAN CORPUSCULAR VOLUME 87.5 fl (80.0-96.0); MONO # 0.4 10^3/uL (0.0-0.8); MONO % 5.2 % (2.0-8.0); NEUTROPHILS # 5.3 10^3/uL (1.5-8.5); NEUTROPHILS % 69.8 % (36.0-66.0); PLATELET COUNT, AUTOMATED 214 10^3/uL (150-450); RED BLOOD COUNT 4.39 10^6/uL (4.00-5.40); WHITE BLOOD COUNT 7.6 10^3/uL (4.0-10.0)
[2022-08-28 23:24] LABS: RSV AMPLIFICATION NEGATIVE (NEGATIVE)
[2022-08-28 23:40] LABS: ACETAMINOPHEN LEVEL < 2.0 UG/ML (10.0-30.0); ALBUMIN 3.4 GM/DL (3.2-5.2); ALT/SGPT 37 U/L (12-78); BILIRUBIN,DIRECT < 0.1 MG/DL (0.0-0.2); BILIRUBIN,TOTAL 0.1 MG/DL (0.2-1.0); BLOOD UREA NITROGEN 14 MG/DL (7-18); CALCIUM LEVEL 8.5 MG/DL (8.5-10.1); CARBON DIOXIDE LEVEL 22 MEQ/L (21-32); CHLORIDE LEVEL 103 MEQ/L (98-107); ETHYL ALCOHOL (ETHANOL) 0.148 % (0.000-0.010); GLUCOSE, FASTING 165 MG/DL (70-100); SALICYLATE LEVEL < 1.7 MG/DL (5.0-30.0); SODIUM LEVEL 134 MEQ/L (136-145); THYROID STIMULATING HORMONE 0.573 uIU/ML (0.358-3.740); TOTAL PROTEIN 6.9 GM/DL (6.4-8.2)
[2022-08-29 00:05] LABS: HCG, SERUM QUALITATIVE NEGATIVE (NEGATIVE)
[2022-08-29 01:49] LABS: AMPHETAMINES LEVEL URINE NEGATIVE (NEGATIVE); BARBITURATES URINE NEGATIVE (NEGATIVE); BENZODIAZEPINES URINE NEGATIVE (NEGATIVE); CANNABINOIDS URINE NEGATIVE (NEGATIVE); COCAINE METABOLITE URINE NEGATIVE (NEGATIVE); METHADONE URINE NEGATIVE (NEGATIVE); OPIATES URINE NEGATIVE (NEGATIVE); PHENCYCLIDINE URINE NEGATIVE (NEGATIVE)
[2022-08-29] MEDS ORDERED: ACETAMINOPHEN TAB 650MG DOSE (2X325MG) PO ONE (13:35)
[2022-08-29] MEDS ORDERED: TRAZ-252 PO (19:05)
[2022-08-29] MEDS ORDERED: DISU1TAB6 PO (20:37)
[2022-08-29] MEDS ORDERED: HOME MED LIST COMPLETE! XX SCH (20:40)
[2022-08-30] MEDS: PANTOPRAZOLE 40MG TAB (PROTONIX) PO SCH (10:26)
[2022-08-30] MEDS: CelecoXIB (CeleBREX) 100 MG CAP PO SCH (10:26)
[2022-08-30] MEDS: buPROPion **XL** TABLET 150MG (WELLBUTRIN XL) PO SCH (10:27)
[2022-08-30] MEDS: SERTRALINE HCL 50 MG TAB PO SCH (10:28)
[2022-08-31] MEDS ORDERED: GABAPENTIN 300 MG CAP PO SCH (09:00)
[2022-08-31] MEDS: PANTOPRAZOLE 40MG TAB (PROTONIX) PO SCH (09:27)
[2022-08-31] MEDS: buPROPion **XL** TABLET 150MG (WELLBUTRIN XL) PO SCH (09:27)
[2022-08-31] MEDS: SERTRALINE HCL 50 MG TAB PO SCH (09:27)
[2022-08-31 12:13] LABS: RSV AMPLIFICATION NEGATIVE (NEGATIVE)
[2022-08-31] MEDS: CelecoXIB (CeleBREX) 100 MG CAP PO SCH ×4 (12:29→17:00)
[2022-08-31] MEDS ORDERED: traZODone 50 MG TAB PO PRN (14:15)
[2022-08-31] MEDS ORDERED: MOM 30ML SUSPENSION UDC PO PRN (14:15)
[2022-08-31] MEDS ORDERED: MAALOX 30 ML SUSP *UDC PO PRN (14:15)
[2022-08-31] MEDS ORDERED: LORazepam 2 MG TAB PO PRN (14:15)
[2022-08-31] MEDS: NALTREXONE 50 MG TAB PO SCH (14:56)
[2022-08-31] MEDS: THIAMINE 100 MG TAB PO SCH ×2 (14:56→22:00)
[2022-08-31] MEDS: MULTIVITAMINS/MINERALS THERAP 1 TAB PO SCH (14:56)
[2022-08-31] MEDS: FOLIC ACID 1MG TAB PO SCH (14:56)
[2022-08-31] MEDS ORDERED: GABAPENTIN 400MG CAP PO SCH (16:00)
[2022-08-31] MEDS ORDERED: GABAPENTIN 100 MG CAP PO SCH (16:00)
[2022-08-31] MEDS: GABAPENTIN 300 MG CAP PO SCH ×2 (17:00→22:00)
[2022-08-31] MEDS: NICOTINE 21MG/24HR 1 EA TRANSDERMAL TD SCH (17:12)
[2022-08-31 20:52] VITALS: BP 116/83
[2022-08-31 22:13] VITALS: BP 116/83
[2022-09-01 05:15] VITALS: BP 133/70
[2022-09-01] MEDS ORDERED: buPROPion **XL** TABLET 150MG (WELLBUTRIN XL) PO SCH (09:00)
[2022-09-01] MEDS: NICOTINE 21MG/24HR 1 EA TRANSDERMAL TD SCH (09:00)
[2022-09-01] MEDS: FOLIC ACID 1MG TAB PO SCH (09:25)
[2022-09-01] MEDS: GABAPENTIN 300 MG CAP PO SCH ×3 (09:25→20:58)
[2022-09-01] MEDS: NALTREXONE 50 MG TAB PO SCH (09:25)
[2022-09-01] MEDS: THIAMINE 100 MG TAB PO SCH ×2 (09:25→20:57)
[2022-09-01] MEDS: MULTIVITAMINS/MINERALS THERAP 1 TAB PO SCH (09:26)
[2022-09-01] MEDS: IBUPROFEN 400MG TAB PO PRN (09:26)
[2022-09-01] MEDS: PANTOPRAZOLE 40MG TAB (PROTONIX) PO SCH (09:26)
[2022-09-01] MEDS: SERTRALINE 100 MG TAB PO SCH (11:45)
[2022-09-01] MEDS: ANALGESIC BALM CRM 3OZ TOP SCH ×3 (12:50→20:57)
[2022-09-01 14:28] VITALS: BP 116/23
[2022-09-01] MEDS: CelecoXIB (CeleBREX) 100 MG CAP PO SCH (15:34)
[2022-09-01 16:02] VITALS: BP 112/60
[2022-09-01] MEDS: MIRTAZAPINE 7.5MG PER 1/2 TABLET PO SCH (20:58)
[2022-09-01 22:37] VITALS: BP 129/62
[2022-09-02 06:25] VITALS: BP 139/93
[2022-09-02 06:27] VITALS: BP 139/93
[2022-09-02 07:36] LABS: HEMOGLOBIN A1c 5.6 %
[2022-09-02 07:43] LABS: CHOLESTEROL RISK RATIO 1.927 (<5)
[2022-09-02] MEDS: NICOTINE 21MG/24HR 1 EA TRANSDERMAL TD SCH (08:04)
[2022-09-02] MEDS: CelecoXIB (CeleBREX) 100 MG CAP PO SCH (08:06)
[2022-09-02] MEDS: buPROPion **XL** TABLET 150MG (WELLBUTRIN XL) PO SCH (08:06)
[2022-09-02] MEDS: FOLIC ACID 1MG TAB PO SCH (08:06)
[2022-09-02] MEDS: GABAPENTIN 300 MG CAP PO SCH ×3 (08:07→21:29)
[2022-09-02] MEDS: THIAMINE 100 MG TAB PO SCH ×2 (08:07→21:29)
[2022-09-02] MEDS: SERTRALINE 100 MG TAB PO SCH (08:07)
[2022-09-02] MEDS: PANTOPRAZOLE 40MG TAB (PROTONIX) PO SCH (08:07)
[2022-09-02] MEDS: NALTREXONE 50 MG TAB PO SCH (08:07)
[2022-09-02] MEDS: MULTIVITAMINS/MINERALS THERAP 1 TAB PO SCH (08:07)
[2022-09-02] MEDS: ANALGESIC BALM CRM 3OZ TOP SCH ×4 (08:08→21:29)
[2022-09-02] MEDS: IBUPROFEN 400MG TAB PO PRN ×2 (08:11→15:32)
[2022-09-02 16:22] VITALS: BP 107/62
[2022-09-02] MEDS: MIRTAZAPINE 7.5MG PER 1/2 TABLET PO SCH (21:29)
[2022-09-03 06:14] VITALS: BP 130/79
[2022-09-03] MEDS: NALTREXONE 50 MG TAB PO SCH (09:31)
[2022-09-03] MEDS: buPROPion **XL** TABLET 150MG (WELLBUTRIN XL) PO SCH (09:31)
[2022-09-03] MEDS: FOLIC ACID 1MG TAB PO SCH (09:31)
[2022-09-03] MEDS: CelecoXIB (CeleBREX) 100 MG CAP PO SCH (09:31)
[2022-09-03] MEDS: PANTOPRAZOLE 40MG TAB (PROTONIX) PO SCH (09:31)
[2022-09-03] MEDS: GABAPENTIN 300 MG CAP PO SCH ×3 (09:31→21:11)
[2022-09-03] MEDS: SERTRALINE 100 MG TAB PO SCH (09:31)
[2022-09-03] MEDS: MULTIVITAMINS/MINERALS THERAP 1 TAB PO SCH (09:31)
[2022-09-03] MEDS: ANALGESIC BALM CRM 3OZ TOP SCH ×4 (09:33→21:11)
[2022-09-03 18:36] VITALS: BP 107/64
[2022-09-03] MEDS: MIRTAZAPINE 7.5MG PER 1/2 TABLET PO SCH (21:11)
[2022-09-03] MEDS: IBUPROFEN 400MG TAB PO PRN (21:12)
[2022-09-04 06:01] VITALS: BP 140/74
[2022-09-04] MEDS: ANALGESIC BALM CRM 3OZ TOP SCH ×4 (08:33→21:21)
[2022-09-04] MEDS: CelecoXIB (CeleBREX) 100 MG CAP PO SCH (08:33)
[2022-09-04] MEDS: buPROPion **XL** TABLET 150MG (WELLBUTRIN XL) PO SCH (08:33)
[2022-09-04] MEDS: SERTRALINE 100 MG TAB PO SCH (08:33)
[2022-09-04] MEDS: GABAPENTIN 300 MG CAP PO SCH ×3 (08:33→21:21)
[2022-09-04] MEDS: PANTOPRAZOLE 40MG TAB (PROTONIX) PO SCH (08:33)
[2022-09-04] MEDS: NALTREXONE 50 MG TAB PO SCH (08:33)
[2022-09-04] MEDS: IBUPROFEN 400MG TAB PO PRN (08:34)
[2022-09-04 16:01] VITALS: BP 143/77
[2022-09-04 16:17] VITALS: BP 119/66
[2022-09-04] MEDS: MIRTAZAPINE 7.5MG PER 1/2 TABLET PO SCH (21:21)
[2022-09-05 06:43] VITALS: BP 124/86
[2022-09-05] MEDS: buPROPion **XL** TABLET 150MG (WELLBUTRIN XL) PO SCH (08:40)
[2022-09-05] MEDS: CelecoXIB (CeleBREX) 100 MG CAP PO SCH (08:40)
[2022-09-05] MEDS: GABAPENTIN 300 MG CAP PO SCH ×3 (08:41→21:02)
[2022-09-05] MEDS: ANALGESIC BALM CRM 3OZ TOP SCH ×4 (08:41→21:02)
[2022-09-05] MEDS: NALTREXONE 50 MG TAB PO SCH (08:41)
[2022-09-05] MEDS: PANTOPRAZOLE 40MG TAB (PROTONIX) PO SCH (08:41)
[2022-09-05] MEDS: SERTRALINE 100 MG TAB PO SCH (08:41)
[2022-09-05 16:27] VITALS: BP 100/57
[2022-09-05] MEDS: MIRTAZAPINE 7.5MG PER 1/2 TABLET PO SCH (21:02)
[2022-09-06 06:29] VITALS: BP 135/74
[2022-09-06] MEDS: NALTREXONE 50 MG TAB PO SCH (08:10)
[2022-09-06] MEDS: SERTRALINE 100 MG TAB PO SCH (08:10)
[2022-09-06] MEDS: PANTOPRAZOLE 40MG TAB (PROTONIX) PO SCH (08:10)
[2022-09-06] MEDS: buPROPion **XL** TABLET 150MG (WELLBUTRIN XL) PO SCH (08:10)
[2022-09-06] MEDS: ANALGESIC BALM CRM 3OZ TOP SCH ×4 (08:11→20:51)
[2022-09-06] MEDS: CelecoXIB (CeleBREX) 100 MG CAP PO SCH (08:11)
[2022-09-06] MEDS: GABAPENTIN 300 MG CAP PO SCH ×3 (08:11→20:51)
[2022-09-06 16:22] VITALS: BP 119/57
[2022-09-06] MEDS: MIRTAZAPINE 7.5MG PER 1/2 TABLET PO SCH (20:50)
[2022-09-07 06:19] VITALS: BP 142/79
[2022-09-07] MEDS: ANALGESIC BALM CRM 3OZ TOP SCH (09:11)
[2022-09-07] MEDS: buPROPion **XL** TABLET 150MG (WELLBUTRIN XL) PO SCH (09:11)
[2022-09-07] MEDS: CelecoXIB (CeleBREX) 100 MG CAP PO SCH (09:11)
[2022-09-07] MEDS: NALTREXONE 50 MG TAB PO SCH (09:11)
[2022-09-07] MEDS: PANTOPRAZOLE 40MG TAB (PROTONIX) PO SCH (09:11)
[2022-09-07] MEDS: GABAPENTIN 300 MG CAP PO SCH (09:11)
[2022-09-07] MEDS: SERTRALINE 100 MG TAB PO SCH (09:11)
[2022-09-07] MEDS ORDERED: NALT50TA4 PO (09:14)
[2022-09-07] MEDS ORDERED: ABIL1TAB11 PO (09:14)
[2022-09-07] MEDS ORDERED: ZOLO100T PO (09:14)
[2022-09-07] MEDS ORDERED: MIRT-10 PO (09:14)
[2022-09-07] MEDS ORDERED: BUPR150T12 PO (09:14)
== END 2022-09-07 13:02 | disposition home or self-care (01) | DRG 751 ==
LOC: M ED 22:12 → EDBD 22:12 → M ED INP 08-31 13:49 → M PSY 08-31 20:48
PROVIDERS: ADMIT Psychiatry & Neurology Psychiatry; ATTEND Psychiatry & Neurology Psychiatry
DX: F33.1 Major depressive disorder, recurrent, moderate (principal); F41.1 Generalized anxiety disorder; Z91.51 Personal history of suicidal behavior; Z98.84 Bariatric surgery status; Z86.718 Personal history of other venous thrombosis and embolism; Z81.1 Family history of alcohol abuse and dependence; Z20.822 Contact with and (suspected) exposure to COVID-19; Z79.899 Other long term (current) drug therapy; Z88.0 Allergy status to penicillin; M54.50 Low back pain, unspecified

== ENCOUNTER 2022-09-18 08:40 | Outpatient (RCR) | payer MEDICAID ==
[~2022-09-18 08:40] MED LIST changes: +ABIL1TAB11 PO; +BUPR150T12 PO; +DISU1TAB6 PO; +MIRT-10 PO; +TRAZ-252 PO
== END 2022-09-21 ==
LOC: M OUTALCOH 08:40
PROVIDERS: ATTEND Psychiatry & Neurology Psychiatry
DX: F10.20 Alcohol dependence, uncomplicated (principal)

== ENCOUNTER → 2022-12-22 | Outpatient (CLI) | payer MEDICAID | LOC: M OUTALCOH 08:20 | PROVIDERS: ATTEND Psychiatry & Neurology Psychiatry | DX: Z02.9 Encounter for administrative examinations, unspecified (principal) ==

== ENCOUNTER 2022-12-31 10:53 | Emergency (ER) | payer MEDICAID, OTHER ==
[~2022-12-31 10:53] MED LIST changes: +RALTEGRAVIR 400 MG TAB (ISENTRESS) PO SCH; +TRUVADA 200MG/300MG TABLET PO SCH
[2022-12-31] MEDS ORDERED: EXPOSURE KIT-ADULT 7 DAY SUPPLY PO ONE (12:30)
[2022-12-31 13:07] LABS: BASO # 0.1 10^3/uL (0.0-0.2); BASO % 0.8 % (0.0-1.0); EOS # 0.1 10^3/uL (0.0-0.5); EOS % 1.5 % (0.0-3.0); HEMATOCRIT 38.9 % (36.0-47.0); HEMOGLOBIN 12.7 g/dl (12.0-15.5); LYMPH # 2.1 10^3/uL (1.5-5.0); LYMPH % 33.8 % (24.0-44.0); MEAN CORPUSCULAR HEMOGLOBIN 27.9 pg (27.0-33.0); MEAN CORPUSCULAR HGB CONC 32.6 g/dl (32.0-36.5); MEAN CORPUSCULAR VOLUME 85.3 fl (80.0-96.0); MONO # 0.4 10^3/uL (0.0-0.8); MONO % 6.3 % (2.0-8.0); NEUTROPHILS # 3.5 10^3/uL (1.5-8.5); NEUTROPHILS % 57.4 % (36.0-66.0); PLATELET COUNT, AUTOMATED 209 10^3/uL (150-450); RED BLOOD COUNT 4.56 10^6/uL (4.00-5.40); WHITE BLOOD COUNT 6.1 10^3/uL (4.0-10.0)
[2022-12-31 13:30] LABS: ALBUMIN 3.8 G/DL (3.2-5.2); ALKALINE PHOSPHATASE 180 U/L (46-116); ALT/SGPT 116 U/L (7.0-40); AST/SGOT 144 U/L (<34); BILIRUBIN,TOTAL 0.7 MG/DL (0.3-1.2); BLOOD UREA NITROGEN 8 MG/DL (9-23); CALCIUM LEVEL 8.9 MG/DL (8.5-10.1); CARBON DIOXIDE LEVEL 21 MMOL/L (20-31); CHLORIDE LEVEL 104 MMOL/L (98-107); CREATININE FOR GFR 0.59 MG/DL (0.55-1.30); GLOMERULAR FILTRATION RATE > 60.0 (>51); GLUCOSE, FASTING 98 MG/DL (60-100); POTASSIUM SERUM 4.4 MMOL/L (3.5-5.1); SODIUM LEVEL 139 MMOL/L (136-145); TOTAL PROTEIN 7.1 G/DL (5.7-8.2)
[2022-12-31 13:32] LABS: HEPATITIS B SURFACE ANTIBODY POSITIVE (POSITIVE)
[2022-12-31 13:45] LABS: HEPATITIS B SURFACE ANTIGEN NEGATIVE (NEGATIVE)
[2022-12-31 13:57] LABS: HIV 1&2 SCREEN CENTAUR NEGATIVE (NEGATIVE)
[2022-12-31] MEDS ORDERED: RALTEGRAVIR 400 MG TAB (ISENTRESS) PO ONE (14:00)
[2022-12-31] MEDS ORDERED: TRUVADA 200MG/300MG TABLET PO ONE (14:00)
[2022-12-31 14:43] LABS: GC DNA AMPLIFICATION NEGATIVE (NEGATIVE)
== END 2022-12-31 13:40 | disposition home or self-care (01) ==
LOC: M ED 10:53
DX: T76.21XA Adult sexual abuse, suspected, initial encounter (principal); K21.9 Gastro-esophageal reflux disease without esophagitis; Z79.899 Other long term (current) drug therapy; Z88.0 Allergy status to penicillin; Z98.84 Bariatric surgery status; Z98.890 Other specified postprocedural states

== ENCOUNTER 2023-01-15 22:55 | Emergency (ER) | payer MEDICAID, OTHER ==
[~2023-01-15] VITALS: Ht 162.6 cm; Wt 136.0 kg
[~2023-01-15 22:55] MED LIST changes: -RALTEGRAVIR 400 MG TAB (ISENTRESS) PO SCH; -TRUVADA 200MG/300MG TABLET PO SCH
[2023-01-16] MEDS ORDERED: MULTIVITAMIN -ADULT INJECTION 10 ML, THIAMINE INJection 100 MG, FOLIC ACID 1 MG in NS 1... IV ONE (00:10)
[2023-01-16 02:45] VITALS: BP 124/67
== END 2023-01-16 03:20 | disposition home or self-care (01) ==
LOC: M ED 22:55
DX: F12.129 Cannabis abuse with intoxication, unspecified (principal); Z86.16 Personal history of COVID-19; Z79.899 Other long term (current) drug therapy; Z88.0 Allergy status to penicillin
CPT/HCPCS: 96365; 96366; 99284; J3411

== ENCOUNTER 2023-03-11 07:41 | Outpatient (RCR) | payer MEDICAID | END 2023-03-21 | LOC: M OUTALCOH 07:41 | PROVIDERS: ATTEND Psychiatry & Neurology Psychiatry | DX: F10.20 Alcohol dependence, uncomplicated (principal) ==

== ENCOUNTER → 2023-04-21 | Outpatient (RCR) | payer MEDICAID | LOC: M OUTALCOH 03-30 09:53 | PROVIDERS: ATTEND Psychiatry & Neurology Psychiatry | DX: F10.20 Alcohol dependence, uncomplicated (principal) ==

== ENCOUNTER 2023-05-17 20:56 | Inpatient (IN) | payer MEDICAID, OTHER ==
[~2023-05-17] VITALS: Ht 160 cm; Wt 141.8 kg
[2023-05-17 22:30] LABS: HEMOGLOBIN 11.5 g/dl (12.0-15.5); MEAN CORPUSCULAR HEMOGLOBIN 27.3 pg (27.0-33.0); MEAN CORPUSCULAR HGB CONC 31.9 g/dl (32.0-36.5); MEAN CORPUSCULAR VOLUME 85.3 fl (80.0-96.0); PLATELET COUNT, AUTOMATED 198 10^3/uL (150-450); RED BLOOD COUNT 4.22 10^6/uL (4.00-5.40); WHITE BLOOD COUNT 6.3 10^3/uL (4.0-10.0)
[2023-05-17 22:53] LABS: ETHYL ALCOHOL (ETHANOL) 0.102 % (0.000-0.010)
[2023-05-17 22:55] LABS: ACETAMINOPHEN LEVEL < 2.0 UG/ML (10.0-20.0); ALBUMIN 3.4 G/DL (3.2-5.2); ALKALINE PHOSPHATASE 118 U/L (46-116); ALT/SGPT 44 U/L (7.0-40); AST/SGOT 23 U/L (<34); BILIRUBIN,DIRECT < 0.1 MG/DL (<0.4); BILIRUBIN,TOTAL 0.2 MG/DL (0.3-1.2); BLOOD UREA NITROGEN 16 MG/DL (9-23); CALCIUM LEVEL 8.1 MG/DL (8.5-10.1); CARBON DIOXIDE LEVEL 22 MMOL/L (20-31); CHLORIDE LEVEL 111 MMOL/L (98-107); CREATININE FOR GFR 0.93 MG/DL (0.55-1.30); GLOMERULAR FILTRATION RATE > 60.0 (>51); GLUCOSE, FASTING 88 MG/DL (60-100); POTASSIUM SERUM 4.5 MMOL/L (3.5-5.1); SALICYLATE LEVEL < 3.0 MG/DL (<30); SODIUM LEVEL 142 MMOL/L (136-145); TOTAL PROTEIN 6.4 G/DL (5.7-8.2)
[2023-05-17 22:57] LABS: HCG, SERUM QUALITATIVE NEGATIVE (NEGATIVE); THYROID STIMULATING HORMONE 0.714 uIU/ML (0.55-4.78)
[2023-05-17 23:16] LABS: AMPHETAMINES LEVEL URINE NEGATIVE (NEGATIVE); BENZODIAZEPINES URINE NEGATIVE (NEGATIVE)
[2023-05-17 23:17] LABS: BARBITURATES URINE NEGATIVE (NEGATIVE); CANNABINOIDS URINE NEGATIVE (NEGATIVE); COCAINE METABOLITE URINE NEGATIVE (NEGATIVE); METHADONE URINE NEGATIVE (NEGATIVE); OPIATES URINE NEGATIVE (NEGATIVE); PHENCYCLIDINE URINE NEGATIVE (NEGATIVE)
[2023-05-18] MEDS ORDERED: HYDR-3363 PO (00:56)
[2023-05-18] MEDS ORDERED: ABIL1TAB11 PO (00:56)
[2023-05-18] MEDS ORDERED: ZOLO100T PO (00:56)
[2023-05-18] MEDS ORDERED: MIRT-60 PO (00:56)
[2023-05-18] MEDS ORDERED: NALT50TA4 PO (00:56)
[2023-05-18] MEDS ORDERED: ACAM0.05 PO (00:56)
[2023-05-18] MEDS ORDERED: BUPR300T92 PO (00:56)
[2023-05-18] MEDS ORDERED: HOME MED LIST COMPLETE! XX SCH (01:00)
[2023-05-18] MEDS ORDERED: MOM 30ML SUSPENSION UDC PO PRN (12:30)
[2023-05-18] MEDS ORDERED: MAALOX 30 ML SUSP *UDC PO PRN (12:30)
[2023-05-18] MEDS ORDERED: diphenhydrAMINE 25MG CAP PO PRN (12:30)
[2023-05-18] MEDS ORDERED: traZODone 50 MG TAB PO PRN (12:30)
[2023-05-18] MEDS ORDERED: ACETAMINOPHEN TAB 650MG DOSE (2X325MG) PO PRN (12:30)
[2023-05-18] MEDS ORDERED: IBUPROFEN 400MG TAB PO PRN (12:30)
[2023-05-18 14:07] VITALS: BP 131/68; TEMP 99; O2SAT 96
[2023-05-18] MEDS: GABAPENTIN 400MG CAP PO SCH ×2 (15:57→21:38)
[2023-05-18] MEDS: ACAMPROSATE CALCIUM 333MG TABLET (CAMPRAL) PO SCH ×2 (15:58→21:38)
[2023-05-18] MEDS: NALTREXONE 50 MG TAB PO SCH (15:58)
[2023-05-18] MEDS: GABAPENTIN 100 MG CAP PO SCH ×2 (15:58→21:38)
[2023-05-18] MEDS: buPROPion **XL** TABLET 150MG (WELLBUTRIN XL) PO SCH (15:59)
[2023-05-18] MEDS: PANTOPRAZOLE 40MG TAB (PROTONIX) PO SCH (15:59)
[2023-05-18] MEDS: SERTRALINE 100 MG TAB PO SCH (15:59)
[2023-05-18] MEDS: MIRTAZAPINE 15 MG TAB PO PRN (21:38)
[2023-05-19 06:13] VITALS: BP 125/84; TEMP 97.4; O2SAT 98
[2023-05-19] MEDS: NALTREXONE 50 MG TAB PO SCH (09:46)
[2023-05-19] MEDS: SERTRALINE 100 MG TAB PO SCH (09:47)
[2023-05-19] MEDS: GABAPENTIN 100 MG CAP PO SCH ×3 (09:48→21:14)
[2023-05-19] MEDS: ACAMPROSATE CALCIUM 333MG TABLET (CAMPRAL) PO SCH ×3 (09:48→21:14)
[2023-05-19] MEDS: buPROPion **XL** TABLET 150MG (WELLBUTRIN XL) PO SCH (09:48)
[2023-05-19] MEDS: PANTOPRAZOLE 40MG TAB (PROTONIX) PO SCH (09:48)
[2023-05-19] MEDS: GABAPENTIN 400MG CAP PO SCH ×3 (09:49→21:13)
[2023-05-19 18:28] VITALS: BP 119/57; TEMP 97.1
[2023-05-19] MEDS: MIRTAZAPINE 15 MG TAB PO PRN (21:14)
[2023-05-20 06:48] VITALS: BP 142/74; TEMP 97.6; O2SAT 95
[2023-05-20] MEDS: buPROPion **XL** TABLET 150MG (WELLBUTRIN XL) PO SCH (09:25)
[2023-05-20] MEDS: ACAMPROSATE CALCIUM 333MG TABLET (CAMPRAL) PO SCH (09:25)
[2023-05-20] MEDS: SERTRALINE 100 MG TAB PO SCH (09:26)
[2023-05-20] MEDS: NALTREXONE 50 MG TAB PO SCH (09:27)
[2023-05-20] MEDS: GABAPENTIN 400MG CAP PO SCH (09:27)
[2023-05-20] MEDS: PANTOPRAZOLE 40MG TAB (PROTONIX) PO SCH (09:27)
[2023-05-20] MEDS: GABAPENTIN 100 MG CAP PO SCH (09:32)
== END 2023-05-20 13:45 | disposition home or self-care (01) | DRG 751 ==
LOC: M ED 20:56 → M ED INP 05-18 12:27 → M PSY 05-18 14:24
PROVIDERS: ADMIT Student in an Organized Health Care Education/Training Program; ATTEND Student in an Organized Health Care Education/Training Program
DX: F33.1 Major depressive disorder, recurrent, moderate (principal); F41.1 Generalized anxiety disorder; F10.90 Alcohol use, unspecified, uncomplicated; G89.29 Other chronic pain; Z86.718 Personal history of other venous thrombosis and embolism; M54.50 Low back pain, unspecified; Z59.00 Homelessness unspecified; Z98.84 Bariatric surgery status; Z81.1 Family history of alcohol abuse and dependence; Z79.899 Other long term (current) drug therapy; Z88.0 Allergy status to penicillin

== ENCOUNTER 2023-05-19 16:00 | Outpatient (RCR) | payer MEDICAID ==
[~2023-05-19 16:00] MED LIST changes: +HYDR-3363 PO; +MIRT-60 PO
== END 2023-05-21 ==
LOC: M OUTALCOH 16:00
PROVIDERS: ATTEND Psychiatry & Neurology Psychiatry
DX: F10.20 Alcohol dependence, uncomplicated (principal)

== ENCOUNTER → 2023-06-09 | Outpatient (REF) | LOC: M PLAIMG 12:36 | PROVIDERS: ATTEND Internal Medicine | DX: R52 Pain, unspecified (principal) ==

== ENCOUNTER 2023-06-17 09:00 | Outpatient (RCR) | payer MEDICAID | END 2023-06-21 | LOC: M OUTALCOH 09:00 | PROVIDERS: ATTEND Psychiatry & Neurology Psychiatry | DX: F10.20 Alcohol dependence, uncomplicated (principal) ==

== ENCOUNTER → 2023-07-22 | Outpatient (RCR) | payer MEDICAID | LOC: M OUTALCOH 06-23 15:57 | PROVIDERS: ATTEND Psychiatry & Neurology Psychiatry | DX: F10.20 Alcohol dependence, uncomplicated (principal) ==

== ENCOUNTER 2023-09-19 18:24 | Emergency (ER) | payer MEDICAID, OTHER ==
[~2023-09-19] VITALS: Ht 162.6 cm; Wt 132.3 kg
[~2023-09-19 18:24] MED LIST changes: +CELE0.09 PO; -CELE1CAP9 PO; -DISU1TAB6; -DISU1TAB6 PO; +DISU1TAB7; +DISU1TAB7 PO
[2023-09-19 19:03] LABS: BASO % 0.4 % (0.0-1.0); EOS # 0.1 10^3/uL (0.0-0.5); EOS % 1.6 % (0.0-3.0); HEMATOCRIT 38.8 % (36.0-47.0); HEMOGLOBIN 12.7 g/dl (12.0-15.5); LYMPH # 4.3 10^3/uL (1.5-5.0); LYMPH % 52.5 % (24.0-44.0); MEAN CORPUSCULAR HEMOGLOBIN 27.5 pg (27.0-33.0); MEAN CORPUSCULAR HGB CONC 32.7 g/dl (32.0-36.5); MONO # 0.7 10^3/uL (0.0-0.8); MONO % 8.4 % (2.0-8.0); PLATELET COUNT, AUTOMATED 237 10^3/uL (150-450); RED BLOOD COUNT 4.62 10^6/uL (4.00-5.40); WHITE BLOOD COUNT 8.1 10^3/uL (4.0-10.0)
[2023-09-19 19:26] LABS: ALBUMIN 3.7 G/DL (3.2-5.2); ALKALINE PHOSPHATASE 124 U/L (46-116); ALT/SGPT 36 U/L (7.0-40); AST/SGOT 79 U/L (<34); BILIRUBIN,DIRECT 0.1 MG/DL (<0.4); BILIRUBIN,TOTAL 0.3 MG/DL (0.3-1.2); BLOOD UREA NITROGEN 10 MG/DL (9-23); CALCIUM LEVEL 8.2 MG/DL (8.5-10.1); CARBON DIOXIDE LEVEL 23 MMOL/L (20-31); CHLORIDE LEVEL 103 MMOL/L (98-107); CREATININE FOR GFR 0.64 MG/DL (0.55-1.30); GLOMERULAR FILTRATION RATE > 60.0 (>51); GLUCOSE, FASTING 99 MG/DL (60-100); POTASSIUM SERUM 4.6 MMOL/L (3.5-5.1); SALICYLATE LEVEL < 3.0 MG/DL (<30); SODIUM LEVEL 138 MMOL/L (136-145); TOTAL PROTEIN 7.2 G/DL (5.7-8.2)
[2023-09-19 19:35] LABS: AMPHETAMINES LEVEL URINE NEGATIVE (NEGATIVE); BARBITURATES URINE NEGATIVE (NEGATIVE); BENZODIAZEPINES URINE NEGATIVE (NEGATIVE); CANNABINOIDS URINE NEGATIVE (NEGATIVE); COCAINE METABOLITE URINE NEGATIVE (NEGATIVE); METHADONE URINE NEGATIVE (NEGATIVE); OPIATES URINE NEGATIVE (NEGATIVE); PHENCYCLIDINE URINE NEGATIVE (NEGATIVE)
[2023-09-19 19:40] LABS: OSMOLALITY SERUM 372 MOSM/KG (275-295)
[2023-09-19 19:42] LABS: RSV AMPLIFICATION NEGATIVE (NEGATIVE)
[2023-09-19 19:52] LABS: ETHYL ALCOHOL (ETHANOL) 0.349 % (0.000-0.010)
[2023-09-19 23:47] VITALS: BP 137/78; TEMP 99; O2SAT 98
== END 2023-09-20 00:06 | disposition home or self-care (01) ==
LOC: M ED 18:24
DX: S09.90XA Unspecified injury of head, initial encounter (principal); F10.129 Alcohol abuse with intoxication, unspecified; W01.0XXA Fall on same level from slipping, tripping and stumbling without subsequent striking against object, initial encounter; Z86.711 Personal history of pulmonary embolism; Z98.84 Bariatric surgery status; Z88.0 Allergy status to penicillin; Z79.891 Long term (current) use of opiate analgesic; Z79.899 Other long term (current) drug therapy

== ENCOUNTER 2023-09-20 13:32 | Emergency (ER) | payer OTHER ==
[~2023-09-20] VITALS: Ht 162.6 cm; Wt 140.2 kg
[2023-09-20 13:46] VITALS: BP 146/81; TEMP 98.1; O2SAT 94
== END 2023-09-20 14:33 | disposition home or self-care (01) ==
LOC: EDBD 13:32 → M ED 13:32
DX: F10.10 Alcohol abuse, uncomplicated (principal); Z79.899 Other long term (current) drug therapy; Z88.0 Allergy status to penicillin

== ENCOUNTER 2023-11-01 12:28 | Emergency (ER) | payer OTHER ==
[~2023-11-01] VITALS: Ht 162.6 cm; Wt 142.7 kg
[2023-11-01 20:44] VITALS: BP 131/70; TEMP 98.3; O2SAT 100
== END 2023-11-01 20:40 | disposition home or self-care (01) ==
LOC: EDBD 12:28 → M ED 12:28
DX: F10.129 Alcohol abuse with intoxication, unspecified (principal); Z98.84 Bariatric surgery status; K21.9 Gastro-esophageal reflux disease without esophagitis; F41.9 Anxiety disorder, unspecified; F32.A Depression, unspecified; Z79.899 Other long term (current) drug therapy; Z88.0 Allergy status to penicillin

== ENCOUNTER 2024-02-07 14:19 | Emergency (ER) | payer OTHER ==
[~2024-02-07] VITALS: Ht 162.6 cm; Wt 145.4 kg
[2024-02-07 14:54] VITALS: BP 126/80; TEMP 98.6
[2024-02-07] MEDS: ACETAMINOPHEN 500 MG TAB PO ONE (19:51)
[2024-02-07 21:00] VITALS: O2SAT 98
== END 2024-02-07 21:02 | disposition home or self-care (01) ==
LOC: M ED 14:19 → EDBD 14:19 → M ED 21:02
DX: S80.12XA Contusion of left lower leg, initial encounter (principal); Y92.9 Unspecified place or not applicable; Y93.9 Activity, unspecified; Y99.9 Unspecified external cause status; F41.9 Anxiety disorder, unspecified; F32.A Depression, unspecified; F10.10 Alcohol abuse, uncomplicated; Z88.0 Allergy status to penicillin; Z79.899 Other long term (current) drug therapy

== ENCOUNTER 2024-02-18 06:33 | Emergency (ER) | payer OTHER ==
[~2024-02-18] VITALS: Ht 160 cm; Wt 149.1 kg
[2024-02-18 07:10] LABS: BASO # 0.1 10^3/uL (0.0-0.2); BASO % 1.1 % (0.0-1.0); EOS # 0.3 10^3/uL (0.0-0.5); EOS % 4.2 % (0.0-3.0); HEMATOCRIT 36.7 % (36.0-47.0); HEMOGLOBIN 11.6 g/dl (12.0-15.5); LYMPH # 2.9 10^3/uL (1.5-5.0); LYMPH % 46.8 % (24.0-44.0); MEAN CORPUSCULAR HEMOGLOBIN 27.3 pg (27.0-33.0); MEAN CORPUSCULAR HGB CONC 31.6 g/dl (32.0-36.5); MEAN CORPUSCULAR VOLUME 86.4 fl (80.0-96.0); MONO # 0.6 10^3/uL (0.0-0.8); MONO % 9.1 % (2.0-8.0); NEUTROPHILS # 2.4 10^3/uL (1.5-8.5); NEUTROPHILS % 38.6 % (36.0-66.0); PLATELET COUNT, AUTOMATED 256 10^3/uL (150-450); RED BLOOD COUNT 4.25 10^6/uL (4.00-5.40); WHITE BLOOD COUNT 6.2 10^3/uL (4.0-10.0)
[2024-02-18 07:47] LABS: RSV AMPLIFICATION NEGATIVE (NEGATIVE)
[2024-02-18] MEDS ORDERED: ISOVUE-370 76% 100ML VIAL As Ordered ONE (08:00)
[2024-02-18] MEDS: ONDANSETRON 4MG 2ML VIAL IV ONE (08:06)
[2024-02-18] MEDS: fentaNYL 100 MCG/2 ML INJECTION IV PRN (08:06)
[2024-02-18 08:33] LABS: LIPASE 30 U/L (12-53)
[2024-02-18 08:34] LABS: CK-MB VALUE MASS < 1.0 NG/ML (<3.6)
[2024-02-18 08:36] LABS: ALBUMIN 3.1 G/DL (3.2-5.2); ALKALINE PHOSPHATASE 111 U/L (46-116); ALT/SGPT 36 U/L (7.0-40); AST/SGOT 77 U/L (<34); BILIRUBIN,DIRECT 0.1 MG/DL (<0.4); BILIRUBIN,TOTAL 0.3 MG/DL (0.3-1.2); BLOOD UREA NITROGEN 12 MG/DL (9-23); CALCIUM LEVEL 7.8 MG/DL (8.5-10.1); CARBON DIOXIDE LEVEL 28 MMOL/L (20-31); CHLORIDE LEVEL 108 MMOL/L (98-107); CPK CREATINE PHOSPHOKINASE 96 U/L (34-145); CREATININE FOR GFR 0.72 MG/DL (0.55-1.30); GLOMERULAR FILTRATION RATE > 60.0 (>51); GLUCOSE, FASTING 96 MG/DL (60-100); MB/CK RELATIVE INDEX 1.04 (< OR =4); POTASSIUM SERUM 4.4 MMOL/L (3.5-5.1); SODIUM LEVEL 143 MMOL/L (136-145); TOTAL PROTEIN 6.4 G/DL (5.7-8.2)
[2024-02-18 08:38] LABS: FREE T4 1.17 NG/DL (0.89-1.76); THYROID STIMULATING HORMONE 0.384 uIU/ML (0.55-4.78)
[2024-02-18 10:19] LABS: CK-MB VALUE MASS < 1.0 NG/ML (<3.6)
[2024-02-18 10:21] LABS: CPK CREATINE PHOSPHOKINASE 103 U/L (34-145); MB/CK RELATIVE INDEX 0.97 (< OR =4)
[2024-02-18] MEDS ORDERED: ARIP1TAB PO (10:21)
[2024-02-18] MEDS ORDERED: ESOM0.1C PO (10:23)
[2024-02-18] MEDS ORDERED: LEXA1TAB PO (10:23)
[2024-02-18] MEDS ORDERED: VIVI380I IM (10:23)
[2024-02-18] MEDS ORDERED: HOME MED LIST COMPLETE! XX SCH (10:45)
[2024-02-18 10:54] VITALS: BP 98/54; TEMP 98.3; O2SAT 94
== END 2024-02-18 11:05 | disposition home or self-care (01) ==
LOC: M ED 09:57
DX: R07.9 Chest pain, unspecified (principal); R11.10 Vomiting, unspecified; F41.9 Anxiety disorder, unspecified; I82.409 Acute embolism and thrombosis of unspecified deep veins of unspecified lower extremity; Z88.0 Allergy status to penicillin; Z79.899 Other long term (current) drug therapy
CPT/HCPCS: 71045; 71275; 74177; 80047; 80048; 80076; 82550; 82553; 83690; 84439; 84443; 85025; 87631; 93005; 93041; 94760; 96374; 99285; J2405; J3010; Q9967

== ENCOUNTER 2024-07-09 05:45 | Emergency (ER) | payer OTHER, SELFPAY ==
[~2024-07-09] VITALS: Ht 160 cm; Wt 140.9 kg
[~2024-07-09 05:45] MED LIST changes: +ARIP1TAB PO; +BUPR-597 PO; -BUPR300T92 PO; +ESOM20CA2 PO; +GABA-1635 PO; -GABA800T4 PO; +LEXA1TAB PO; -MIRT-60 PO; +MIRT-89 PO; +VIVI380I IM
[2024-07-09 06:43] LABS: BASO % 0.5 % (0.0-1.0); EOS # 0.1 10^3/uL (0.0-0.5); EOS % 1.6 % (0.0-3.0); HEMATOCRIT 36.5 % (36.0-47.0); HEMOGLOBIN 11.7 g/dl (12.0-15.5); LYMPH # 1.6 10^3/uL (1.5-5.0); LYMPH % 26.1 % (24.0-44.0); MEAN CORPUSCULAR HGB CONC 32.1 g/dl (32.0-36.5); MEAN CORPUSCULAR VOLUME 84.1 fl (80.0-96.0); MONO # 0.6 10^3/uL (0.0-0.8); MONO % 8.8 % (2.0-8.0); NEUTROPHILS # 3.9 10^3/uL (1.5-8.5); NEUTROPHILS % 62.8 % (36.0-66.0); PLATELET COUNT, AUTOMATED 164 10^3/uL (150-450); RED BLOOD COUNT 4.34 10^6/uL (4.00-5.40); WHITE BLOOD COUNT 6.3 10^3/uL (4.0-10.0)
[2024-07-09 06:55] LABS: INR 1.05; PROTHROMBIN TIME 13.4 SECONDS (12.5-14.5)
[2024-07-09 07:12] LABS: ETHYL ALCOHOL (ETHANOL) 0.134 % (0.000-0.010); LIPASE 26 U/L (12-53)
[2024-07-09 07:13] LABS: ALBUMIN 3.3 G/DL (3.2-5.2); ALKALINE PHOSPHATASE 127 U/L (46-116); ALT/SGPT 17 U/L (7.0-40); AST/SGOT 18 U/L (<34); BILIRUBIN,DIRECT 0.2 MG/DL (<0.4); BILIRUBIN,TOTAL 0.5 MG/DL (0.3-1.2); BLOOD UREA NITROGEN 7 MG/DL (9-23); CALCIUM LEVEL 8.2 MG/DL (8.5-10.1); CARBON DIOXIDE LEVEL 21 MMOL/L (20-31); CHLORIDE LEVEL 112 MMOL/L (98-107); CK-MB VALUE MASS < 1.0 NG/ML (<3.6); CREATININE FOR GFR 0.69 MG/DL (0.55-1.30); GLOMERULAR FILTRATION RATE > 60.0 (>51); GLUCOSE, FASTING 94 MG/DL (60-100); POTASSIUM SERUM 4.4 MMOL/L (3.5-5.1); SODIUM LEVEL 146 MMOL/L (136-145); TOTAL PROTEIN 6.9 G/DL (5.7-8.2)
[2024-07-09 07:25] LABS: CPK CREATINE PHOSPHOKINASE 115 U/L (34-145); MB/CK RELATIVE INDEX 0.86 (< OR =4)
[2024-07-09 07:48] LABS: THYROID STIMULATING HORMONE 0.253 uIU/ML (0.55-4.78)
[2024-07-09] MEDS: PROMETHAZINE 25MG/ML 1ML VIAL IV ONE (08:03)
[2024-07-09] MEDS: NS 1,000 ML IV ONE (08:03)
[2024-07-09 08:20] LABS: CK-MB VALUE MASS 1.6 NG/ML (<3.6); CPK CREATINE PHOSPHOKINASE 152 U/L (34-145); MB/CK RELATIVE INDEX 1.05 (< OR =4)
[2024-07-09] MEDS ORDERED: ISOVUE-370 76% 100ML VIAL As Ordered ONE (10:01)
[2024-07-09] MEDS: MAALOX 30 ML SUSP *UDC PO ONE (10:29)
[2024-07-09] MEDS: LIDOCAINE VISCOUS 2% SOLN 15ML UDC PO ONE (10:29)
[2024-07-09] MEDS ORDERED: ELIQ5TAB PO (12:03)
[2024-07-09] MEDS: APIXABAN 5 MG TAB (ELIQUIS) PO ONE (12:16)
[2024-07-09 12:19] VITALS: BP 165/85; TEMP 98; O2SAT 97
== END 2024-07-09 13:11 | disposition home or self-care (01) ==
LOC: M ED 05:45
DX: I26.99 Other pulmonary embolism without acute cor pulmonale (principal); I82.622 Acute embolism and thrombosis of deep veins of left upper extremity; I45.81 Long QT syndrome; F10.10 Alcohol abuse, uncomplicated; Z88.0 Allergy status to penicillin; Z79.01 Long term (current) use of anticoagulants; Z79.899 Other long term (current) drug therapy
CPT/HCPCS: 71045; 71275; 80053; 82077; 82248; 82550; 82553; 83690; 83880; 84443; 84484; 85025; 85610; 93005; 93041; 93971; 94760; 96374; 99284; J2550; Q9967

== ENCOUNTER → 2024-07-11 | Outpatient (REF) | payer SELFPAY, OTHER ==
[~2024-07-11] MED LIST changes: -GABA-1635 PO; +GABA800T4 PO
== END ==
LOC: M LAB REF 11:00
PROVIDERS: ATTEND Family Medicine Addiction Medicine
DX: R30.9 Painful micturition, unspecified (principal)

== ENCOUNTER → 2024-10-10 | Outpatient (CLI) | payer OTHER ==
[~2024-10-10] MED LIST changes: +GABA-1635 PO; -GABA800T4 PO; +METHACHOLINE KIT (6 VIAL.NEB PREMIX) INH ONE
== END ==
LOC: M CARPUL 14:19
PROVIDERS: ATTEND Internal Medicine Pulmonary Disease
DX: R06.02 Shortness of breath (principal)
CPT/HCPCS: 94070; 95070; J7674